=== PATIENT | female | born 1950 | race Two or more races ===

== ENCOUNTER 2017-09-08 14:00 | Outpatient (AMBR) | payer MEDICARE, SELFPAY ==
--- NOTE | 2017-08-23 12:05 | PT.OIERPT ---
PT OP Initial Eval Patient Information Visit Reasons: left hand Medical Diagnosis: S52.592D Treatment Dx #1: Left Wrist Mobility Deficits Treatment Dx #2: Left Hand Weakness Start of Care: 08/23/17 Date of Onset: Apr 2017 Initial Assessment Subjective Pt is a 67 y/o female c/o left hand pain (12/22) started after she broke her distal radius from a fall. Pt was in a cast for several weeks and made her hand and fingers really stiff. Pt came late into therapy due to recently receiving medicare. Pt currently has difficulty with lifting, self care, chores, cooking, cleaning, and gripping activities. Pt also notice that her shoulder is hurting as well since the fall. Objective Right Shoulder AROM Flexion: 130 deg Abduction: 90 deg External Rotation: 45 deg Internal Rotation: 50 deg Right Shoulder MMTs: grossly 3-/5 Right Elbow AROM: all motions are WNL Right Elbow MMTs: grossly 4-/5 Right Wrist AROM Flexion: 10 deg Extension: neutral Supination: 90 deg Pronation: 60 deg Radial Deviation: neutral Ulnar Deviation: 10 deg Academic Assistant Strength- L: 10 lbs R: 65 lbs DASH score: 83% Assessment Pt demonstrate left UE mobility and strength deficits s/p distal radius fracture leading to decline function and difficulty with ADLs. Pt will benefit from physical therapy to increase strength, mobility, and work on functional tasks. Short Term and Hydrologist Goals 1) Decrease DASH score to 20 % and increase left wrist AROM WFL in 12 wks to be able to perform chores around the house 2) Increase left shoulder AROM WFL in 12 wks to be able to perform overhead motions 3) Increase left farmworkers strength to 50 lbs in 12 wks to be able to perform gripping activities 4) Increase left shoulder MMTs to 4-/5 in 12 wks to be able to perform self care activities 5) Indep with HEP Treatment Plan 1) Manual Therapy 2) Therapeutic Activities 3) Therapeutic Exercises 4) Modalities (ice, heat, e-stim) Frequency and Duration 2 x wk for 12 wks Certification Dates: 08/23/17 to 11/23/17 Office Procedures PT Outpatient G-Codes Date of Service PT Date of Service: 08/23/17 G-Codes Carry/Moving/Handling Objects Carry Current Status G-Code: G8984: CM 80-100% Carry Goal Status G-Code:G8985: CI 1-20% PT Procedures PT Date of Service: 08/23/17 OP PT Eval Mod Complex 30 minutes: Yes
--- NOTE | 2017-08-23 12:17 | PTNOTE_ITS ---
PT OP Initial Eval Patient Information Visit Reasons: left hand Medical Diagnosis: S52.592D Treatment Dx #1: Left Wrist Mobility Deficits Treatment Dx #2: Left Hand Weakness Start of Care: 08/23/17 Date of Onset: Apr 2017 Initial Assessment Subjective Pt is a 67 y/o female c/o left hand pain (12/22) started after she broke her distal radius from a fall. Pt was in a cast for several weeks and made her hand and fingers really stiff. Pt came late into therapy due to recently receiving medicare. Pt currently has difficulty with lifting, self care, chores, cooking, cleaning, and gripping activities. Pt also notice that her shoulder is hurting as well since the fall. Objective Right Shoulder AROM Flexion: 130 deg Abduction: 90 deg External Rotation: 45 deg Internal Rotation: 50 deg Right Shoulder MMTs: grossly 3-/5 Right Elbow AROM: all motions are WNL Right Elbow MMTs: grossly 4-/5 Right Wrist AROM Flexion: 10 deg Extension: neutral Supination: 90 deg Pronation: 60 deg Radial Deviation: neutral Ulnar Deviation: 10 deg Web Communications Specialist Strength- L: 10 lbs R: 65 lbs DASH score: 83% Assessment Pt demonstrate left UE mobility and strength deficits s/p distal radius fracture leading to decline function and difficulty with ADLs. Pt will benefit from physical therapy to increase strength, mobility, and work on functional tasks. Short Term and Business Area Manager Goals 1) Decrease DASH score to 20 % and increase left wrist AROM WFL in 12 wks to be able to perform chores around the house 2) Increase left shoulder AROM WFL in 12 wks to be able to perform overhead motions 3) Increase left earring maker strength to 50 lbs in 12 wks to be able to perform gripping activities 4) Increase left shoulder MMTs to 4-/5 in 12 wks to be able to perform self care activities 5) Indep with HEP Treatment Plan 1) Manual Therapy 2) Therapeutic Activities 3) Therapeutic Exercises 4) Modalities (ice, heat, e-stim) Frequency and Duration 2 x wk for 12 wks Certification Dates: 08/23/17 to 11/23/17 Office Procedures PT Outpatient G-Codes Date of Service PT Date of Service: 08/23/17 G-Codes Carry/Moving/Handling Objects Carry Current Status G-Code: G8984: CM 80-100% Carry Goal Status G-Code:G8985: CI 1-20% PT Procedures PT Date of Service: 08/23/17 OP PT Eval Mod Complex 30 minutes: Yes
--- NOTE | 2017-08-26 17:01 | PT.ODAYNRPT ---
PT Outpatient Daily Note Date of Service: August 26, 2017 OP Daily Note Visit Reasons: left hand Outpatient Physical Therapy Treatment Date: 08/26/17 Subjective: Pt's hand is doing much better. Pt still has pain at the broken site. Objective: Please see flow chart for list of ther ex performed Assessment: tolerate exercises performed; pain with supination and pronation exercise, however, tolerable Plan: Continue with PT Length of Time (minutes) of Treatment: 30 Minutes Office Procedures PT Outpatient G-Codes Date of Service PT Date of Service: 08/23/17 G-Codes Carry/Moving/Handling Objects Carry Current Status G-Code: G8984: CM 80-100% Carry Goal Status G-Code:G8985: CI 1-20% PT Procedures PT Date of Service: 08/23/17 OP PT Eval Mod Complex 30 minutes: Yes PT Procedures PT Date of Service: 08/26/17 Therapeutic Exercise 30 minutes: Yes
--- NOTE | 2017-08-30 14:54 | PT.ODAYNRPT ---
PT Outpatient Daily Note Date of Service: August 30, 2017 OP Daily Note Visit Reasons: left hand Outpatient Physical Therapy Treatment Date: 08/30/17 Subjective: pt had some pain of the L hand upon visit but tolerable. Objective: see flow sheet. Assessment: changed the position of the sci-fit from 5 mins to 4 mins forward/4 backwards and pt had no c/o pain or discomfort. attempted to try the Green resistance but was too difficult for went back to using red resistance. good mobility during pulleys for BUE. slow steady during reps which indicates slight weakness. Plan: continue POC per PT. Length of Time (minutes) of Treatment: 30 Minutes Office Procedures PT Outpatient G-Codes Date of Service PT Date of Service: 08/23/17 G-Codes Carry/Moving/Handling Objects Carry Current Status G-Code: G8984: CM 80-100% Carry Goal Status G-Code:G8985: CI 1-20% PT Procedures PT Date of Service: 08/23/17 OP PT Eval Mod Complex 30 minutes: Yes PT Procedures PT Date of Service: 08/30/17 Therapeutic Exercise 30 minutes: Yes PT Procedures PT Date of Service: 08/26/17 Therapeutic Exercise 30 minutes: Yes
--- NOTE | 2017-09-02 14:08 | PT.ODAYNRPT ---
PT Outpatient Daily Note Date of Service: September 02, 2017 OP Daily Note Visit Reasons: left hand Outpatient Physical Therapy Treatment Date: 09/02/17 Subjective: pt c/o weakness of the first three digits on the L hand. Objective: see flow sheet. Assessment: noted hand weakness with gripping exercises but pt attempts to complete all reps. pt can complete an exercise better if she uses both hands due to strength of the opposite hand but when L hand isolated she has more difficulty. pt takes some rest breks in between reps/exercises but tries to complete all at once. Plan: continue POC per PT. Length of Time (minutes) of Treatment: 30 Minutes Office Procedures PT Outpatient G-Codes Date of Service PT Date of Service: 08/23/17 G-Codes Carry/Moving/Handling Objects Carry Current Status G-Code: G8984: CM 80-100% Carry Goal Status G-Code:G8985: CI 1-20% PT Procedures PT Date of Service: 08/23/17 OP PT Eval Mod Complex 30 minutes: Yes PT Procedures PT Date of Service: 08/30/17 Therapeutic Exercise 30 minutes: Yes PT Procedures PT Date of Service: 08/26/17 Therapeutic Exercise 30 minutes: Yes PT Procedures PT Date of Service: 09/02/17 Therapeutic Exercise 30 minutes: Yes
--- NOTE | 2017-09-06 10:36 | PTNOTE_ITS ---
PT Outpatient Daily Note Date of Service: September 06, 2017 OP Daily Note Visit Reasons: left hand Outpatient Physical Therapy Treatment Date: 09/06/17 Subjective: Pt's wrist and shoulder feels the same. Pt stated that no change in pain or motions since starting physical therapy. Objective: Please see flow chart for list of ther ex performed Assessment: slight improvement with wrist AROM and finger flexion. Pt advised that if she continues to have shoulder pain she should follow up with PCP Plan: Continue with PT Length of Time (minutes) of Treatment: 30 Minutes Office Procedures PT Outpatient G-Codes Date of Service PT Date of Service: 08/23/17 G-Codes Carry/Moving/Handling Objects Carry Current Status G-Code: G8984: CM 80-100% Carry Goal Status G-Code:G8985: CI 1-20% PT Procedures PT Date of Service: 08/23/17 OP PT Eval Mod Complex 30 minutes: Yes PT Procedures PT Date of Service: 08/30/17 Therapeutic Exercise 30 minutes: Yes PT Procedures PT Date of Service: 09/06/17 Therapeutic Exercise 15 minutes: Yes Manual Certified Medical Transcriptionist 15 minutes: Yes PT Procedures PT Date of Service: 08/26/17 Therapeutic Exercise 30 minutes: Yes PT Procedures PT Date of Service: 09/02/17 Therapeutic Exercise 30 minutes: Yes
--- NOTE | 2017-09-08 14:09 | PT.ODAYNRPT ---
PT Outpatient Daily Note Date of Service: September 08, 2017 OP Daily Note Visit Reasons: left hand Outpatient Physical Therapy Treatment Date: 09/08/17 Subjective: Pt's hand is a little better. Pt's able to make a better first with less stiffness Objective: Please see flow chart for list of ther ex performed Assessment: improved PIP flexion from digits 2-5th. Pt able to perform gripping activities with less limitation Plan: Continue with PT Length of Time (minutes) of Treatment: 30 Minutes Office Procedures PT Outpatient G-Codes Date of Service PT Date of Service: 08/23/17 G-Codes Carry/Moving/Handling Objects Carry Current Status G-Code: G8984: CM 80-100% Carry Goal Status G-Code:G8985: CI 1-20% PT Procedures PT Date of Service: 08/23/17 OP PT Eval Mod Complex 30 minutes: Yes PT Procedures PT Date of Service: 08/30/17 Therapeutic Exercise 30 minutes: Yes PT Procedures PT Date of Service: 09/06/17 Therapeutic Exercise 15 minutes: Yes Manual Store Grocery Merchandiser 15 minutes: Yes PT Procedures PT Date of Service: 09/08/17 Therapeutic Exercise 15 minutes: Yes Manual Store Grocery Merchandiser 15 minutes: Yes PT Procedures PT Date of Service: 08/26/17 Therapeutic Exercise 30 minutes: Yes PT Procedures PT Date of Service: 09/02/17 Therapeutic Exercise 30 minutes: Yes
== END 2017-09-11 23:59 ==
PROVIDERS: PCP Advanced Practice Midwife; Referring Provider Registered Nurse Community Health; Visit Provider Physician Assistant
DX: I10 Essential (primary) hypertension (principal)
CPT/HCPCS: 97110; 97140; 97162; G8984; G8985

== ENCOUNTER 2017-10-04 13:00 | Outpatient (AMBR) | payer MEDICARE, MEDICAID, SELFPAY ==
--- NOTE | 2017-09-13 10:55 | PT.ODAYNRPT ---
PT Outpatient Daily Note Date of Service: September 13, 2017 OP Daily Note Visit Reasons: left hand Outpatient Physical Therapy Treatment Date: 09/13/17 Subjective: Pt's hand is feeling better. Pt has been able to start light knitting. Pt notice swelling and pain within her fingers at the end of the day. Objective: Please see flow chart for list of ther ex performed Assessment: continue to improve with finger flexion. improve PIP mobilitly within 1st to 4th digit. Pt is almost able to make a fist. Plan: Continue with PT Length of Time (minutes) of Treatment: 45 Minutes Office Procedures PT Procedures PT Date of Service: 09/13/17 Therapeutic Exercise 30 minutes: Yes Manual Continuous Pickling Line Pickler Helper 15 minutes: Yes
--- NOTE | 2017-09-20 13:40 | PT.ODAYNRPT ---
PT Outpatient Daily Note Date of Service: September 20, 2017 OP Daily Note Visit Reasons: left hand Outpatient Physical Therapy Treatment Date: 09/20/17 Subjective: pt c/o not being able to bend the first digit as it feels stiff. pt mentioned referral for L shoulder should be coming in. Objective: see flow sheet. Assessment: during PROM noted the first 2 digits were stiff and caused discomfort. the thumbs tends to tense up as I'm stretching the other fingers. pt does have limited ROM which is causing limited mobility for ADLs. pt tolerated PROM and had no c/o increase in pain afterwards. muscle fatigue after the finger ladder but at the shoulder. Plan: continue POC per PT. Length of Time (minutes) of Treatment: 30 Minutes Office Procedures PT Procedures PT Date of Service: 09/13/17 Therapeutic Exercise 30 minutes: Yes Manual Photoengraving Photographer 15 minutes: Yes PT Procedures PT Date of Service: 09/20/17 Therapeutic Exercise 15 minutes: Yes Manual Photoengraving Photographer 15 minutes: Yes
--- NOTE | 2017-09-23 11:04 | PT.ODAYNRPT ---
PT Outpatient Daily Note Date of Service: September 23, 2017 OP Daily Note Visit Reasons: left hand Outpatient Physical Therapy Treatment Date: 09/23/17 Subjective: Pt's hand feels much better. Pt mention that she can start light cooking and lifting now. Objective: Please see flow chart for list of ther ex performed Assessment: able to make a fist; still exhibit hypomobile 1st and 2nd digit MCP joint leading to difficulty with finger flexion. Plan: Continue with PT Length of Time (minutes) of Treatment: 30 Minutes Office Procedures PT Procedures PT Date of Service: 09/23/17 Therapeutic Exercise 15 minutes: Yes Manual Smt Operator 15 minutes: Yes PT Procedures PT Date of Service: 09/13/17 Therapeutic Exercise 30 minutes: Yes Manual Smt Operator 15 minutes: Yes PT Procedures PT Date of Service: 09/20/17 Therapeutic Exercise 15 minutes: Yes Manual Smt Operator 15 minutes: Yes
--- NOTE | 2017-09-27 14:28 | PTNOTE_ITS ---
PT Outpatient Daily Note Date of Service: September 27, 2017 OP Daily Note Visit Reasons: left hand Outpatient Physical Therapy Treatment Date: 09/27/17 Subjective: pt reports she can't get referral for her L shoulder until after an MRI is done. Objective: see flow sheet. Assessment: pt has no complaints during the exercises as she can complete all reps and sets. pt does have difficulty relaxing her fingers during PROM. after cuing for her to relax a few times she was able to relax for a bit. pt tends to tense up with every stretch. some discomfort when stretching joints for all digits. noted stiffness of the DIPs and PIPs with very little swelling not warm to touch. Plan: continue POC per PT. Length of Time (minutes) of Treatment: 30 Minutes Office Procedures PT Procedures PT Date of Service: 09/23/17 Therapeutic Exercise 15 minutes: Yes Manual Nuclear Plant Construction Worker 15 minutes: Yes PT Procedures PT Date of Service: 09/13/17 Therapeutic Exercise 30 minutes: Yes Manual Nuclear Plant Construction Worker 15 minutes: Yes PT Procedures PT Date of Service: 09/20/17 Therapeutic Exercise 15 minutes: Yes Manual Nuclear Plant Construction Worker 15 minutes: Yes PT Procedures PT Date of Service: 09/27/17 Therapeutic Exercise 30 minutes: Yes
--- NOTE | 2017-10-04 13:35 | PT.ODS1RPT ---
PT OP Progress/Discharge Note Date of Service: October 04, 2017 Progress Note/DC Note Progress Note/Discharge Note: DC Note Patient Information Visit Reasons: left hand Medical Diagnosis: S52.592D Treatment Dx #1: Left Wrist Mobility Deficits Treatment Dx #2: Left Hand Weakness Service Continue Service or Discharge: Discharge Discharge Date: 10/04/17 Status Subjective: Pt mention that her hand is a little better but still feels almost the same since she started physical therapy. Pt still has difficulty making a fist, lifting, chores, and performing overhead motions. Pt mention that currently her biggest limitation is the shoulder. Pt notice more pain there leading to difficulty with her left arm use with functional tasks. Pt feels comfortable being release from physical therapy with exercises to continue at home. Objective: Left Wrist AROM: Flexion: 30 deg Extension: 15 deg Pronation and Supination: WNL Radial Deviation: 10 deg Ulnar Deviation: 15 deg Landfill Gas Collection System Operator Strength- L: 25 lbs R: 65 lbs DASH score: 67% Assessment: Pt's left wrist and strength has improved mildly since starting physical therapy, however, continues to have pain within the wrist and shoulder. Due to Pt's limited wrist and finger mobility; she has difficulty making a fist to perform lifting and gripping activities. At this time Pt will no longer benefit from physical therapy due to minimal progression towards goals. Pt did not meet set goals in therapy and will be d/c from therapy per Pt's request. Pt will like to be seen for the shoulder. Pt was instructed on HEP last session and educated to continue exercises to maintain overall mobility and strength. Pt performed all exercises safely, thank you for your referrals. Plan: D/C home with HEP and follow up with PCP Office Procedures PT Outpatient G-Codes Date of Service PT Date of Service: 10/04/17 G-Codes Carry/Moving/Handling Objects Carry Goal Status G-Code:G8985: CM 80-100% Carry Discharge Status G-Code: G8986: CK 40-60% PT Procedures PT Date of Service: 09/23/17 Therapeutic Exercise 15 minutes: Yes Manual Sexual Assault Response Coordinator 15 minutes: Yes PT Procedures PT Date of Service: 10/04/17 Therapeutic Exercise 15 minutes: Yes Self Care/Home Mgmt 15 minutes: Yes PT Procedures PT Date of Service: 09/13/17 Therapeutic Exercise 30 minutes: Yes Manual Sexual Assault Response Coordinator 15 minutes: Yes PT Procedures PT Date of Service: 09/20/17 Therapeutic Exercise 15 minutes: Yes Manual Sexual Assault Response Coordinator 15 minutes: Yes PT Procedures PT Date of Service: 09/27/17 Therapeutic Exercise 30 minutes: Yes
== END 2017-10-04 13:39 | disposition home or self-care (01) ==
PROVIDERS: PCP Advanced Practice Midwife; Referring Provider Advanced Practice Midwife; Visit Provider Physician Assistant
DX: I10 Essential (primary) hypertension (principal)
CPT/HCPCS: 97110; 97140; 97535; G8985; G8986

== ENCOUNTER 2024-05-10 13:01 | Outpatient (RCR) | payer MEDICARE, MEDICAID, SELFPAY ==
--- NOTE | 2024-05-10 14:27 | CTCCONSULT_ITS ---
[facility] [address], [place] [address] Consultation Note Date: 05/10/2024 MR#: [id number] Name: AYDEE SAUCEDO : 1950 Dx: C50.412 Malignant neoplasm of upper-outer quadrant of left female breast Attending physician. Litzy Silver NP living water Reason for consultation. Patient with left breast cancer recently getting treatment in [place] History of Present Illness: Patient is a 73-year-old lady who had an abnormal appearing mammogram on September 27 revealing a 14 mm BI-RADS 4 upper outer quadrant left breast.. Patient underwent stereotactic core biopsy on 12/23/2023 revealing invasive ductal carcinoma largest focus 0.8 cm 95% ER +5% ER positive and HER2/burke negative Ki67 5 to 10%. Patient elects to get cancer treatment in [place] reportedly had interferon treatments for 2 months duration 30 IV treatments between late January and March. States that she does not want to go back there and would like to conventional treatments here in [place]. Has never seen any other doctor in [place] for this problem since the biopsy performed 12/23/2023. States that she has never felt a lump in her breast or axilla. Past Medical History: High blood pressure diabetes history of CVA chickenpox Meds. Atorvastatin Linzess losartan 81 mg aspirin clopidogrel Allergies none to meds Family history. Colon cancer and testicular cancer in family Social History: Retired [place]-speaking from [facility] in [place] where she was getting IV interferons Review of Systems: Has not felt any breast lump then or now denies pain shortness of breath. Physical Exam: Adequate nourished appearing lady no acute distress General: HEENT: Atraumatic normocephalic extraocular is intact no oral lesion no cervical or supraclavicular adenopathy CV: No discrete mass felt in either breast or axillary area chest clear to auscultation heart regular rate and rhythm ABD: Soft no organomegaly or tenderness EXT: No signs of clubbing or edema Assessment:1. Patient with seemingly early stage left breast CA clinical stage I 14 mm upper outer quadrant left breast CA biopsy + 12/23/2023 95% ER +5% TN positive HER2/burke 1+ negative. Ki-67 5 to 10%. 2. Elected to delay conventional care by at least 2 months receiving interferon in [place]. 3. Agrees to have conventional recommendation for breast cancer now. 4. Would like to have patient see general surgeon regarding breast surgery and patient also has appointment with medical oncologist Dr. Ramsey lozano. 5. I will schedule her for follow-up in 2 months to see me as well. Thank you very much allowing me to evaluate this patient. Carlos Snow/Litzy Silver NP Electronically signed by: Solomon Ramon MD, DABR 05/10/2024 2:24 PM
== END 2024-05-12 23:59 | disposition home or self-care (01) ==
LOC: SCTC 13:01
PROVIDERS: PCP Nurse Practitioner Family; Referring Provider Nurse Practitioner Family; Visit Provider Radiology Therapeutic Radiology
DX: C50.412 Malignant neoplasm of upper-outer quadrant of left female breast (principal); Z17.0 Estrogen receptor positive status [ER+]; Z17.21 Progesterone receptor positive status; Z17.32 Human epidermal growth factor receptor 2 negative status
CPT/HCPCS: 99213; G0463

== ENCOUNTER → 2024-05-23 | Outpatient (CLI) | payer MEDICARE, MEDICAID, SELFPAY ==
--- NOTE | 2024-05-23 12:00 | XR_ITS ---
Examination: Breast ultrasound, unilateral, left complete Date and time of exam: May 2024 1112 hrs. Indications: Diagnosis malignant neoplasm left breast positive biopsy December 23, 2023 Technique: Real-time rivera scale ultrasonographic imaging performed left breast including all 4 quadrants as well as nipple retroareolar and axillary region. Findings: Multiple benign cysts 2:00 oval mass indistinct margins 15 x 11 x 18 mm, compared to 11 x 6 x 12 mm on ultrasound August 16, 2023 Impression: BI-RADS Category 5: Enlarging nodule 2:00 position left breast indistinct margins compared to the August 16, 2023 exam
== END | disposition home or self-care (01) ==
PROVIDERS: PCP Surgery; Referring Provider Surgery; Visit Provider Surgery
DX: N63.21 Unspecified lump in the left breast, upper outer quadrant (principal); C50.412 Malignant neoplasm of upper-outer quadrant of left female breast
CPT/HCPCS: 76641

== ENCOUNTER 2024-05-25 08:28 | Outpatient (RCR) | payer MEDICARE, MEDICAID, SELFPAY ==
--- NOTE | 2024-06-11 23:21 | CTCCONSULT_ITS ---
Patient: AYDEE SAUCEDO : 1950 MR#: [id number] Page 3 of 4 CONSULTATION NOTE DATE OF CONSULTATION: 05/25/2024 NAME: AYDEE SAUCEDO ACCOUNT: [id number] : 1950 AGE: 74 REFERRING PHYSICIAN: Litzy Silver MD PRIMARY PHYSICIAN: Litzy Silver MD REASON FOR VISIT: Follow-up on breast cancer ONCOLOGY HISTORY: DIAGNOSIS: Malignant neoplasm of upper-outer quadrant of left female breast [ICD10] C50.412 DATE OF DIAGNOSIS: 12/23/2023 STAGE/TNM: Likely stage I ER/UT positive HER2 negative TREATMENT HISTORY: Care?Plan Start?Date Cycle Day Intent HISTORY OF PRESENT ILLNESS: 74-year-old female who had an abnormal appearing mammogram on September 27 revealing a 14 mm BI-RADS 4 upper outer quadrant left breast.. Patient underwent stereotactic core biopsy on 12/23/2023 revealing invasive ductal carcinoma largest focus 0.8 cm 95% ER +5% ER positive and HER2/burke negative Ki67 5 to 10%. Patient elects to get cancer treatment in [place] reportedly had interferon treatments for 2 months duration 30 IV treatments between late January and March. States that she does not want to go back there and would like to conventional treatments here in [place]. Has never seen any other doctor in [place] for this problem since the biopsy performed 12/23/2023. States that she has never felt a lump in her breast or axilla. Age 892[birth year]23[birth year]23 OTHER MEDICAL HISTORY/CONDITIONS: HYPERTENSION DIABETES TYPE 2 STROKE SEPTEMBER 2023 RECTAL PROLASPSE SURGERY LEFT SHOULDER ROTATOR CUFF SX FAMILY HISTORY: Father:?DENIES Mother:?DENIES Siblin BROTHER TESTICULAR CANCER, SISTER COLON CANCER Children:?DENIES SOCIAL HISTORY: Occupational?History:?RETIRED [employer] Education?Level:?Completed something less than 8th grade Marital?Status:? 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 anastrozole - 1 mg 1 tab Daily 2. atorvastatin - As directed 3. Linzess - As directed 4. losartan - As directed Medications Last Reconciled by Zoe Boyce RN on 05/25/2024 ALLERGIES: No Known Allergies; No Known Drug Allergies REVIEW OF SYSTEMS: A complete 14-point review of systems was performed and is negative except as noted in interval history. PHYSICAL EXAMINATION: VITAL SIGNS: Temperature?98.6, B/P?143/81, Height?64?inches Weight?151?lbs (Change?since?05/10/24:?-1?lbs) PAIN: 3 - Between mild and moderate pain ECOG Performance Status: 0 - Asymptomatic and fully active GENERAL APPEARANCE: Appears well, in no apparent distress, appropriately interactive. HEENT: Normocephalic, no temporal wasting, normal conjunctiva, no scleral icterus, normal hearing, lips without lesions, neck normal range of motion. CARDIOVASCULAR: Not assessed. PULMONARY: Normal respiratory effort, no respiratory distress or use of accessory muscles, speaking in full sentences, no tachypnea. EXTREMITIES: No pedal edema or cyanosis. SKIN: Normal skin appearance. NEUROLOGIC: Alert and oriented x4. PSHYCHIATRIC: Appropriate affect, mood normal, behavior normal, intact thought and speech. LABORATORY DATA: I have personally reviewed and interpreted each of the patient?s relevant lab tests, abnormal findings are below: Date ASSESSMENT/PLAN: Early stage breast cancer Estrogen positive Will start on anastrozole 1 mg daily Referral placed to general surgery start Will follow-up after the results of surgery are back Patient advised to stop anastrozole during the surgery days and once recovered will start the medicine also advised to take calcium and vitamin D Final pathology report will guide if patient will need chemotherapy RETURN TO CLINIC: 4 weeks BILLING AND COMPLIANCE: I reviewed external records from providers outside my specialty as summarized above. I spent a total of 50 minutes on this patient?s care on the day of their visit excluding time spent related to any billed procedures. This time includes time spent with the patient as well as time spent documenting in the medical record, reviewing patients records and tests, obtaining history, placing orders, communicating with other healthcare professionals, counseling the patient, family or caregiver, and/or care coordination for the diagnoses above. Electronically Signed by: Yoel Bonner MD T: 11:18 PM CC: PCP: Litzy Silver Referring: Litzy Silver This document was completed utilizing speech recognition software. Grammatical errors, random word insertions, pronoun errors, and incomplete sentences are an occasional consequence of this system due to software limitations, ambient noise, and hardware issues. Any formal questions or concerns about the content, text or information contained within the body of this dictation should be directly addressed to the provider for clarification.
== END 2024-06-12 23:59 | disposition home or self-care (01) ==
LOC: SCTC 08:28
PROVIDERS: PCP Nurse Practitioner Family; Referring Provider Nurse Practitioner Family; Visit Provider Internal Medicine Hematology & Oncology
DX: C50.412 Malignant neoplasm of upper-outer quadrant of left female breast (principal); Z17.0 Estrogen receptor positive status [ER+]; Z17.21 Progesterone receptor positive status; Z17.32 Human epidermal growth factor receptor 2 negative status
CPT/HCPCS: 99213; G0463

== ENCOUNTER → 2024-06-14 | Outpatient (CLI) | payer MEDICARE, MEDICAID, SELFPAY ==
--- NOTE | 2024-06-14 13:37 | XR_ITS ---
Examination: Diagnostic digital mammography, unilateral, right Computer aided detection 3-D breast Tomosynthesis, unilateral Date and time of exam: June 14, 2024 1347 hours INDICATIONS: Palpable lump right breast noted on clinical breast examination by physician 3 weeks ago, personal history left breast cancer Technique: Nonmagnified MLO, CC views of the right breast have been obtained, reconstructed from 3-D Tomosynthesis images. R2 computer aided detection program utilized for evaluation of suspicious masses and/or abnormal calcifications. 3-D Tomosynthesis images obtained. Findings: The breast is heterogeneously dense, which may obscure small masses 12 mm nodule upper outer right breast partially indistinct margins Impression: BI-RADS category 0: Incomplete: Need additional imaging evaluation Recommend spot tomographic views upper outer quadrant right breast, right breast sonography to complete the workup
== END | disposition home or self-care (01) ==
PROVIDERS: PCP Nurse Practitioner Family; Referring Provider Nurse Practitioner Family; Visit Provider Surgery
DX: R92.8 Other abnormal and inconclusive findings on diagnostic imaging of breast (principal)
CPT/HCPCS: 77061; 77065; G0279

== ENCOUNTER → 2024-06-15 | Outpatient (CLI) | payer MEDICARE, MEDICAID, SELFPAY ==
[2024-06-15 14:30] LABS: Basophils # (Auto) 0.1 Thou/mm3 (0.0-0.2); Basophils % (Auto) 1 % (0-2.5); Eosinophils # (Auto) 0.2 Thou/mm3 (0.0-0.5); Eosinophils % (Auto) 2 % (0-10); Hematocrit 37.3 % (36.0-46.0); Hemoglobin 12.3 g/dL (12.0-16.0); Immature Granulocytes % (Auto) 1 % (0-0); Immature Granulocytes Auto 0.09 Thou/mm3 (0.00-0.00); Lymphocytes # (Auto) 2.5 Thou/mm3 (1.0-4.8); Lymphocytes % (Auto) 28 % (10-50); Mean Corpuscular Hemoglobin 31.3 pg (25.0-35.0); Mean Corpuscular Volume 95 fL (80-100); Monocytes # (Auto) 0.6 Thou/mm3 (0.0-0.8); Monocytes % (Auto) 7 % (0-12); Neutrophils # (Auto) 5.6 Thou/mm3 (1.8-7.7); Neutrophils % (Auto) 62 % (37-80); Nucleated Red Blood Cell % 0 /100 WBC (0); Platelet Count 404 Thou/mm3 (140-440); RDW Standard Deviation 43.8 fL (36.4-46.3); Red Blood Count 3.93 Miln/mm3 (4.00-5.20); White Blood Count 9.1 Thou/mm3 (3.6-11.0)
[2024-06-15 14:37] LABS: Alanine Aminotransferase 18 U/L (10-49); Albumin, Serum 4.7 gm/dL (3.4-4.8); Alkaline Phosphatase 75 U/L (46-116); Anion Gap 9 (7-16); Aspartate Amino Transferase 20 U/L (0-34); BUN/Creatinine Ratio 14 Ratio (12-20); Bilirubin,Total 0.6 mg/dL (0.3-1.2); Blood Urea Nitrogen 13 mg/dL (9-23); Carbon Dioxide 32.7 mMol/L (20.0-31.0); Chloride 101 mMol/L (98-107); Creatinine (Component) 0.9 mg/dL (0.6-1.3); Globulin 2.3 gm/dL (2.3-3.5); Glucose 185 mg/dL (74-106); Osmolality,Calculated 290 (275-295); Potassium 4.5 mMol/L (3.4-5.1); Sodium 143 mMol/L (136-145); eGFR > 60 See Note
== END | disposition home or self-care (01) ==
LOC: SCTO 12:55
PROVIDERS: PCP Nurse Practitioner Family; Referring Provider Internal Medicine Hematology & Oncology; Visit Provider Internal Medicine Hematology & Oncology
DX: C50.412 Malignant neoplasm of upper-outer quadrant of left female breast (principal)
CPT/HCPCS: 36415; 80053; 85025

== ENCOUNTER → 2024-06-29 | Outpatient (BNVA) | payer MEDICARE, MEDICAID, SELFPAY | END | disposition home or self-care (01) | PROVIDERS: PCP Nurse Practitioner Family; Referring Provider Nurse Practitioner Family; Visit Provider Urology | DX: N39.46 Mixed incontinence (principal); C50.912 Malignant neoplasm of unspecified site of left female breast; E11.9 Type 2 diabetes mellitus without complications; F33.9 Major depressive disorder, recurrent, unspecified; I10 Essential (primary) hypertension; I83.93 Asymptomatic varicose veins of bilateral lower extremities; K57.32 Diverticulitis of large intestine without perforation or abscess without bleeding; Z86.73 Personal history of transient ischemic attack (TIA), and cerebral infarction without residual deficits | CPT/HCPCS: 81003; 99203; G0463 ==

== ENCOUNTER 2024-07-06 09:13 | Outpatient (RCR) | payer MEDICARE, MEDICAID, SELFPAY ==
--- NOTE | 2024-06-21 00:55 | CTCFLWUP_ITS ---
Patient: AYDEE SAUCEDO : 1950 Page 4 of 6 FOLLOW UP NOTE DATE OF SERVICE: 06/15/2024 NAME: AYDEE SAUCEDO ACCOUNT: [id number] : 1950 AGE: 74 INTERVAL HISTORY: Patient complaing of mass in right breast . ONCOLOGY HISTORY: DIAGNOSIS: Malignant neoplasm of upper-outer quadrant of left female breast [ICD10] C50.412 DATE OF DIAGNOSIS: 12/23/2023 STAGE/TNM: Likely stage I ER/SC positive HER2 negative TREATMENT HISTORY: Care?Plan Start?Date Cycle Day Intent HISTORY OF PRESENT ILLNESS: 74-year-old female who had an abnormal appearing mammogram on September 27 revealing a 14 mm BI-RADS 4 upper outer quadrant left breast.. Patient underwent stereotactic core biopsy on 12/23/2023 revealing invasive ductal carcinoma largest focus 0.8 cm 95% ER +5% ER positive and HER2/burke negative Ki67 5 to 10%. Patient elects to get cancer treatment in [place] reportedly had interferon treatments for 2 months duration 30 IV treatments between late January and March. States that she does not want to go back there and would like to conventional treatments here in [place]. Has never seen any other doctor in [place] for this problem since the biopsy performed 12/23/2023. States that she has never felt a lump in her breast or axilla. Age OTHER MEDICAL HISTORY/CONDITIONS: HYPERTENSION DIABETES TYPE 2 STROKE SEPTEMBER 2023 RECTAL PROLASPSE SURGERY LEFT SHOULDER ROTATOR CUFF SX FAMILY HISTORY: Father:?DENIES Mother:?DENIES Siblin BROTHER TESTICULAR CANCER, SISTER COLON CANCER Children:?DENIES SOCIAL HISTORY: Occupational?History:?RETIRED [employer] Education?Level:?Completed something less than 8th grade Marital?Status:? 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 anastrozole - 1 mg 1 tab Daily 2. atorvastatin - As directed 3. Linzess - As directed 4. losartan - As directed Medications Last Reconciled by Zoe Boyce RN on 05/25/2024 ALLERGIES: No Known Allergies; No Known Drug Allergies REVIEW OF SYSTEMS: A complete 14-point review of systems was performed and is negative except as noted in interval history. PHYSICAL EXAMINATION: VITAL SIGNS: Temperature?97, B/P?156/70, Oxygen?Saturation?96% Weight?155?lbs (Change?since?05/25/24:?4?lbs) PAIN: 5 - Between moderate and severe pain ECOG Performance Status: 1 - Symptomatic; ambulatory; restricted in strenuous activity GENERAL APPEARANCE: Appears well, in no apparent distress, appropriately interactive. HEENT: Normocephalic, no temporal wasting, normal conjunctiva, no scleral icterus, normal hearing, lips without lesions, neck normal range of motion. CARDIOVASCULAR: Not assessed. PULMONARY: Normal respiratory effort, no respiratory distress or use of accessory muscles, speaking in full sentences, no tachypnea. EXTREMITIES: No pedal edema or cyanosis. SKIN: Normal skin appearance. NEUROLOGIC: Alert and oriented x4. PSHYCHIATRIC: Appropriate affect, mood normal, behavior normal, intact thought and speech. Left breast surgical site healing. Right breast have palpable mass. LABORATORY DATA: I have personally reviewed and interpreted each of the patient?s relevant lab tests, abnormal findings are below: Date 06/15/24 ??WHITE?BLOOD?COUNT?(Thou/mm3) 9.1 ??RED?BLOOD?COUNT?(Miln/mm3) 3.93?L ??HEMOGLOBIN?(gm/dl) 12.3 ??HEMATOCRIT?(%) 37.3 ??PLATELET?COUNT?(Thou/mm3) 404 ??NEUTROPHILS?%,?AUTO?(%) 62 ??LYMPH?%,?AUTO?(%) 28 ??NEUTROPHILS,?AUTO?(Thou/mm3) 5.6 ??GLUCOSE,RANDOM?(mg/dL) 185?H ??BLOOD?UREA?NITROGEN?(mg/dL) 13 ??CREATININE?(mg/dL) 0.90 ??SODIUM?(mmol/L) 143 ??POTASSIUM?(mmol/L) 4.5 ??CHLORIDE?(mmol/L) 101 ??CrCl?(CandG)?(ml/min) 62.71 ??AST/SGOT?(Unit/L) 20 ??ALT/SGPT?(Unit/L) 18 ??ALKALINE?PHOSPHATASE?(Unit/L) 75 ??BILIRUBIN,?TOTAL?(mg/dL) 0.6 ??PROTEIN?TOTAL?(gm/dl) 7.0 ??ALBUMIN,?SERUM?(gm/dl) 4.7 ??GLOBULIN?(gm/dl) 2.3 ??ALBUMIN/GLOBULIN?RATIO 2.0 ??CALCIUM,?SERUM?(mg/dL) 10.0 ??CALCIUM?SERUM?(CORRECTED)?(mg/dL) 10.0 ASSESSMENT/PLAN: Early stage breast cancer Estrogen positive on anastrozole 1 mg daily Oncotype on lumpectomy specimen ordered Radiation Mammogram of right breast Follow oncotype for need of chemotherapy in 2 weeks ORDERS: Order # Description [id number] Comprehensive Metabolic Panel - 12 + CBC with Auto Diff [id number] Unilateral + Right + Breast Ultrasound [id number] MD Follow Up 4 Week RETURN TO CLINIC: 2-3 weeks BILLING AND COMPLIANCE: I reviewed external records from providers outside my specialty as summarized above. I spent a total of 50 minutes on this patient?s care on the day of their visit excluding time spent related to any billed procedures. This time includes time spent with the patient as well as time spent documenting in the medical record, reviewing patients records and tests, obtaining history, placing orders, communicating with other healthcare professionals, counseling the patient, family or caregiver, and/or care coordination for the diagnoses above. Electronically Signed by: Yoel Bonner MD T: 12:52 AM CC: PCP: Litzy Silver Referring: Yoel Bonner This document was completed utilizing speech recognition software. Grammatical errors, random word insertions, pronoun errors, and incomplete sentences are an occasional consequence of this system due to software limitations, ambient noise, and hardware issues. Any formal questions or concerns about the content, text or information contained within the body of this dictation should be directly addressed to the provider for clarification.
== END 2024-07-12 23:59 | disposition home or self-care (01) ==
LOC: SCTC 09:13
PROVIDERS: PCP Nurse Practitioner Family; Referring Provider Internal Medicine Hematology & Oncology; Visit Provider Radiology Therapeutic Radiology
DX: C50.412 Malignant neoplasm of upper-outer quadrant of left female breast (principal); Z17.0 Estrogen receptor positive status [ER+]; Z17.21 Progesterone receptor positive status; Z17.32 Human epidermal growth factor receptor 2 negative status; Z90.12 Acquired absence of left breast and nipple; Z79.811 Long term (current) use of aromatase inhibitors
CPT/HCPCS: 36415; 80053; 85025; 99213; G0463

== ENCOUNTER → 2024-07-07 | Outpatient (CLI) | payer MEDICARE, MEDICAID, SELFPAY ==
[2024-07-07 09:40] LABS: Basophils # (Auto) 0.1 Thou/mm3 (0.0-0.2); Basophils % (Auto) 1 % (0-2.5); Eosinophils # (Auto) 0.2 Thou/mm3 (0.0-0.5); Eosinophils % (Auto) 3 % (0-10); Hematocrit 36.5 % (36.0-46.0); Immature Granulocytes % (Auto) 1 % (0-0); Immature Granulocytes Auto 0.03 Thou/mm3 (0.00-0.00); Lymphocytes # (Auto) 2.3 Thou/mm3 (1.0-4.8); Lymphocytes % (Auto) 37 % (10-50); Mean Corpuscular HGB Conc 32.9 g/dl (31.0-37.0); Mean Corpuscular Hemoglobin 31.3 pg (25.0-35.0); Mean Corpuscular Volume 95 fL (80-100); Monocytes # (Auto) 0.4 Thou/mm3 (0.0-0.8); Monocytes % (Auto) 7 % (0-12); Neutrophils # (Auto) 3.1 Thou/mm3 (1.8-7.7); Neutrophils % (Auto) 51 % (37-80); Nucleated Red Blood Cell % 0 /100 WBC (0); Platelet Count 404 Thou/mm3 (140-440); RDW Standard Deviation 43.4 fL (36.4-46.3); Red Blood Count 3.84 Miln/mm3 (4.00-5.20); White Blood Count 6.1 Thou/mm3 (3.6-11.0)
[2024-07-07 10:02] LABS: Glucose Estimated Average 154 mg/dL (80-131)
[2024-07-07 10:08] LABS: Folate 20.12 ng/mL (>5.38); Vitamin B12 648 pg/mL (211-911); Vitamin D 25 Hydroxy Total 54.6 ng/mL (7.3-40.2)
[2024-07-07 10:13] LABS: Alanine Aminotransferase 12 U/L (10-49); Albumin, Serum 5.1 gm/dL (3.4-4.8); Albumin/Globulin Ratio 2.4 (1.2-2.2); Alkaline Phosphatase 74 U/L (46-116); Anion Gap 8 (7-16); Aspartate Amino Transferase 15 U/L (0-34); BUN/Creatinine Ratio 19 Ratio (12-20); Bilirubin,Total 0.4 mg/dL (0.3-1.2); Blood Urea Nitrogen 15 mg/dL (9-23); Calcium 10.2 mg/dL (8.3-10.6); Calcium (Corrected) 10.2 mg/dL (8.5-10.1); Carbon Dioxide 28.1 mMol/L (20.0-31.0); Chloride 108 mMol/L (98-107); Cholesterol 142 mg/dL (132-200); Creatinine (Component) 0.8 mg/dL (0.6-1.3); Free T4 (Free Thyroxine) 1.07 ng/dL (0.89-1.76); Globulin 2.1 gm/dL (2.3-3.5); Glucose 144 mg/dL (74-106); HDL Cholesterol 48 mg/dL (40-60); LDL Cholesterol,Calculated 59 mg/dL (0-130); Osmolality,Calculated 290 (275-295); Potassium 4.1 mMol/L (3.4-5.1); Sodium 144 mMol/L (136-145); Thyroid Stimulating Hormone 1.92 uIU/mL (0.55-4.78); Total Protein 7.2 gm/dL (5.7-8.2); Triglycerides 173 mg/dL (30-150); eGFR > 60 See Note
== END | disposition home or self-care (01) ==
PROVIDERS: PCP Nurse Practitioner Family; Referring Provider Nurse Practitioner Family; Visit Provider Nurse Practitioner Family
DX: E11.21 Type 2 diabetes mellitus with diabetic nephropathy (principal); E55.9 Vitamin D deficiency, unspecified; E78.5 Hyperlipidemia, unspecified; R89.8 Other abnormal findings in specimens from other organs, systems and tissues
CPT/HCPCS: 36415; 80053; 80061; 82306; 82607; 82746; 83036; 83721; 84439; 84443; 85025

== ENCOUNTER → 2024-07-10 | Outpatient (CLI) | payer MEDICARE, MEDICAID, SELFPAY ==
--- NOTE | 2024-07-10 14:30 | XR_ITS ---
Examination: Breast ultrasound, unilateral, right complete Date and time of exam: July 10, 2024 1534 hours INDICATIONS: Palpable lump in the upper right breast beginning several weeks ago, left breast cancer history with lumpectomy December 2023 Technique: Real-time rivera scale ultrasonographic imaging performed right breast including all 4 quadrants as well as nipple retroareolar and axillary region. Findings: 3:00 nodule 7 x 7 mm circumscribed IMPRESSION: BI-RADS Category 3: Probably benign findings One additional 6 month right breast sonogram follow-up is needed to document stability of 3:00 nodule described above
== END | disposition home or self-care (01) ==
LOC: CDIM 14:08
PROVIDERS: PCP Nurse Practitioner Family; Referring Provider Internal Medicine Hematology & Oncology; Visit Provider Internal Medicine Hematology & Oncology
DX: N63.15 Unspecified lump in the right breast, overlapping quadrants (principal); C50.412 Malignant neoplasm of upper-outer quadrant of left female breast
CPT/HCPCS: 76641

== ENCOUNTER 2024-07-13 23:58 | Emergency (ER) | payer MEDICARE, MEDICAID, SELFPAY ==
[2024-07-13 23:59] VITALS: BMI 27.4
--- NOTE | 2024-07-14 00:07 | EKG_ITS ---
[facility] Test Date: 2024-07-14 Pat Name: AYDEE SAUCEDO Department: Room: - Gender: Female Admissions Nurse: : 1950 Requested By: Zeferino Nelson Order Number: [id number] Reading MD: Zeferino Nelson Measurements Intervals Bishop Rate: 69 P: 58 DE: 167 QRS: 17 QRSD: 90 T: 68 QT: 387 QTc: 415 Interpretive Statements SINUS RHYTHM LOW QRS VOLTAGE IN PRECORDIAL LEADS [QRS DEFLECTION < 1.0 mV IN CHEST LEADS] Compared to ECG 11/12/2023 10:28:19 Low QRS voltage now present Myocardial infarct finding no longer present /store/S0/[id number]/ecg/[id number].pdf
[2024-07-14 00:16] VITALS: BP 146/70; PULSE 70; RESP 18; TEMP 37; O2SAT 97
--- NOTE | 2024-07-14 00:45 | XR_ITS ---
Examination: PA chest single view. TECHNIQUE: Upright PA chest single view. Examination time: July 14, 2024, 0114 hours Comparison April 08, 2023 INDICATIONS: Chest pain today. FINDINGS: Early pneumonia left lower lobe Left axillary surgical clips Normal heart size No pulmonary edema Impression : Early pneumonia left lower lobe
--- NOTE | 2024-07-14 00:45 | EDRME_ITS ---
Rapid Medical Screening Exam [facility] Arrival date/time: 07/13/24 23:58 74F with history of breast cancer, DM, and HTN presents to ED with 1 hour of chest pressure and elevated BP (apparently 230s systolic at home; patient took extra dose of normal HTN meds). Chief Complaint: Chest Pain Vital signs: Vital Signs Temperature 98.6 F 07/14/24 00:16 Pulse Rate 70 07/14/24 00:16 Respiratory Rate 18 07/14/24 00:16 Blood Pressure 146/70 H 07/14/24 00:16 Pulse Oximetry (%) 97 07/14/24 00:16 Oxygen Delivery Method Room Air 07/14/24 00:16
[2024-07-14 02:00] LABS: Basophils # (Auto) 0.1 Thou/mm3 (0.0-0.2); Basophils % (Auto) 1 % (0-2.5); Eosinophils # (Auto) 0.3 Thou/mm3 (0.0-0.5); Eosinophils % (Auto) 3 % (0-10); Hematocrit 33.9 % (36.0-46.0); Hemoglobin 11.7 g/dL (12.0-16.0); Immature Granulocytes % (Auto) 0 % (0-0); Immature Granulocytes Auto 0.02 Thou/mm3 (0.00-0.00); Lymphocytes % (Auto) 35 % (10-50); Mean Corpuscular HGB Conc 34.5 g/dl (31.0-37.0); Mean Corpuscular Hemoglobin 31.4 pg (25.0-35.0); Mean Corpuscular Volume 91 fL (80-100); Monocytes # (Auto) 0.9 Thou/mm3 (0.0-0.8); Monocytes % (Auto) 10 % (0-12); Neutrophils # (Auto) 4.3 Thou/mm3 (1.8-7.7); Neutrophils % (Auto) 51 % (37-80); Nucleated Red Blood Cell % 0 /100 WBC (0); Platelet Count 333 Thou/mm3 (140-440); Red Blood Count 3.73 Miln/mm3 (4.00-5.20); White Blood Count 8.5 Thou/mm3 (3.6-11.0)
[2024-07-14 02:11] LABS: INR 0.9 (0.9-1.3); Prothrombin Time 10.4 Seconds (9.0-12.2)
[2024-07-14 02:14] LABS: B-Type Natriuretic Peptide 21 pg/mL (0-100)
[2024-07-14 02:17] LABS: Alanine Aminotransferase 12 U/L (10-49); Albumin, Serum 4.8 gm/dL (3.4-4.8); Albumin/Globulin Ratio 2.2 (1.2-2.2); Alkaline Phosphatase 78 U/L (46-116); Anion Gap 11 (7-16); Aspartate Amino Transferase 17 U/L (0-34); BUN/Creatinine Ratio 17 Ratio (12-20); Bilirubin,Total 0.4 mg/dL (0.3-1.2); Blood Urea Nitrogen 15 mg/dL (9-23); Calcium 9.9 mg/dL (8.3-10.6); Calcium (Corrected) 9.9 mg/dL (8.5-10.1); Carbon Dioxide 30.2 mMol/L (20.0-31.0); Chloride 102 mMol/L (98-107); Creatinine (Component) 0.9 mg/dL (0.6-1.3); Estimated Creatinine Clearance 51.1 mL/min (>60); Globulin 2.2 gm/dL (2.3-3.5); Glucose 94 mg/dL (74-106); Magnesium 1.6 mg/dL (1.6-2.6); Osmolality,Calculated 285 (275-295); Potassium 3.6 mMol/L (3.4-5.1); Sodium 143 mMol/L (136-145); Troponin I < 0.020 ng/mL (0.0-0.045); eGFR > 60 See Note
--- NOTE | 2024-07-14 02:25 | PD.EDRECHK ---
ED Recheck Abnl Lab Rx-RME/HPI General Chief Complaint: Chest Pain Stated Complaint: HIGH BP, CHEST THIGHTNESS Arrival date/time: 07/13/24 23:58 RME / HPI RME / HPI narrative: 07/13/24 23:58 74F with history of breast cancer, DM, and HTN presents to ED with 1 hour of chest pressure and elevated BP (apparently 230s systolic at home; patient took extra dose of normal HTN meds). DR. AGUILAR MAIN ED EVALUATION: 74 y/o female with Hx of Transient Ischemic Attacks, Angina, Obesity, Carpal Tunnel Syndrome, Diabetes Mellitus Type 2 and SHx of Ear Surgery and Nephrectomy BIB daughter presents to ED c/o elevated blood pressure reading x 1 day. Patient reports her BP cuff is connected to the clinic. After a high BP reading,she was contacted by the clinic and advised to come to the ED for evaluation. Patient denies chest pain, headache, shortness of breath or any other associated symptoms or aggravating factors. No modifying factors, no radiation, no migration. No pain reported overall. Related Data Home Medications ?Medication ?Instructions ?Recorded ?Confirmed atorvastatin 80 mg tablet 80 mg PO QDAY 10/13/22 06/29/24 losartan 100 1 tab PO QDAY 11/27/22 06/29/24 mg-hydrochlorothiazide 25 mg tablet empagliflozin 25 mg tablet 25 mg feeding tube QPM 07/30/23 06/29/24 (Jardiance) Allergies Allergy/AdvReac Type Severity Reaction Status Date / Time No Known Allergies Allergy Verified 07/13/24 23:58 Review of Systems Review of Systems Systems Reviewed: All systems reviewed, normal except as documented Narrative Review of Systems: Gen: No fever, no chills, no weight loss EYES: No discharge, no visual changes, no pain HEENT: No ear pain, no congestion, no sore throat PULM: No shortness of breath, no cough, no congestion CV: No chest pain, no dyspnea on exertion, no palpitations, elevated blood pressure GI: No nausea, no vomiting, no diarrhea, no pain, no constipation : No frequency, no urgency, no dysuria Musc/skel: No joint pain, no back pain Skin: No rash. Psyc: No hallucinations, no depression Heme/Lymph: No easy bleeding or bruising tendencies Neuro: No weakness, no headache Past Medical History Past Medical History NEUROLOGIC: Positive Transient Ischemic Attacks (TIA) CARDIAC: Positive Cardiac Disorders and Angina GASTROINTESTINAL: Positive Gastrointestinal Disorders and Obesity REPRODUCTIVE: Positive Previous Pregnancies ( Miscarriage 3) MUSCULOSKELETAL: Positive Carpal Tunnel Syndrome ENDOCRINE: Positive Endocrine Disorders and Diabetes Mellitus Type 2 OTHER HISTORY: Positive Hospitalization (september at [facility] for stroke) Family History FAMILY HISTORY: Positive Family Cardiac Disorders, Family Gastrointestinal Problems (aunt/ colon cancer), Family Cancer and Family Surgery Surgical History SURGICAL: Positive Ear Surgery and Nephrectomy ED Exam Narrative Physical exam: GENERAL APPEARANCE: alert and oriented x 4, well-developed, well-nourished, no acute distress VITALS: All vitals were reviewed and the pulse ox is 97% on room air, which is normal according to my interpretation. HEENT: Normocephalic, atraumatic; pupils equal, round, reactive to light; EOMI; mucous membranes pink, moist; oropharynx clear NECK: Supple LUNGS: CTABL; no wheezes, no rales, no rhonchi HEART: Regular rate, regular rhythm; normal S1, S2; no murmurs ABDOMEN: non distended; normal BS; soft, no tenderness, no guarding, no rebound; no masses, no organomegaly, no hernia BACK: no CVA tenderness EXTREMITIES: atraumatic; no edema NEUROLOGIC: awake; alert and oriented x4; cranial nerves II-XII grossly intact; no focal sensory or motor deficits PSYCHIATRIC: appropriate mood and affect SKIN: warm, dry, normal color; no rashes Course Course Course Narrative: 0600: Pending official chest x-ray radiology read. Quality Measures none Orders Category Date Time Status EKG (ED ONLY) *Do not use* NOW Care 07/14/24 00:07 Completed EKG (ED Only) Stat Exams 07/14/24 00:07 Draft XR chest 1V portable Stat Exams 07/14/24 00:45 Completed B-Type Natriuretic Peptide Stat Lab 07/14/24 01:22 Completed CBC Stat Lab 07/14/24 01:22 Completed Comprehensive Metabolic Panel Stat Lab 07/14/24 01:22 Completed Magnesium Stat Lab 07/14/24 01:22 Completed Partial Thromboplastin Time Stat Lab 07/14/24 01:22 Completed Prothrombin Time with INR Stat Lab 07/14/24 01:22 Completed Troponin I Stat Lab 07/14/24 01:22 Completed Vital Signs Vital signs: Vital Signs Temperature 98.6 F 07/14/24 00:16 Pulse Rate 70 07/14/24 00:16 Respiratory Rate 18 07/14/24 00:16 Blood Pressure 146/70 H 07/14/24 00:16 Pulse Oximetry (%) 97 07/14/24 00:16 Oxygen Delivery Method Room Air 07/14/24 00:16 Recheck / Abnormal Lab / Rx MDM Narrative MDM Narrative:: Scribe Attestation: I, Miroslava Mitchell, am scribing for and in the presence of Dr. Aguilar. Provider Notation: Although this document has been carefully reviewed, there may still be some phonetic and other typographical errors. These errors are purely grammatical due to imperfections in the software program and should not be construed in any way to compromise the substance of the patient's medical care during this visit. Patient data External records reviewed:: [facility] previous records Clinical information provided by:: patient and family (Daughter) Social determinants that could affect healthcare access:: none Patient has the following chronic illnesses:: Transient Ischemic Attacks, Angina, Obesity, Carpal Tunnel Syndrome, Diabetes Mellitus Type 2 How is presenting disease/condition affected by chronic disease/condition?: exacerbated by Evaluation data The following diagnostics were reviewed and interpreted by me:: lab results, radiology exam(s) and EKG tracing(s) ( 0018: EKG manual reading, my interpretation: sinus rhythm, rate: 69 bpm, no ST elevation, Q-wave in III and v1, no acute ischemic changes, interpreted as normal.) Lab and/or radiology exams considered but not ordered:: None. Interpretation Summary: RADIOLOGY Chest X-Ray: CXR is ordered for determining etiology of elevated blood pressure. Pending official radiology read. Medications / Prescriptions Medications or Prescriptions considered but not ordered:: None. Medication administrations:: See above if any. Consultations Consultation(s) initiated? (list below): No Diagnosis Recheck Differential Diagnosis: other (Elevated BP vs Primary vs Secondary Hypertension vs Anxiety) Most likely diagnosis given after review of the tests above:: Elevated blood pressure reading. Admission Indicated Admission indicated?: not indicated Explain why admission is indicated or not indicated:: Did not meet admission criteria. Admission Request Was there a request for admission?: No Disposition Plan Disposition Plan: Discharge Discharge Attestation Discharge Attestation: The patient and all family members were given an opportunity to ask questions and understood the discharge instructions. Discharge instructions specifically effects, indications for sooner follow up or return to the emergency department, and the expected course of current diagnosis. Patient condition: Stable Discharge Plan Plan Patient Disposition: HOME (Self Care) Prescriptions/Referrals Prescriptions/Med Rec: No Action atorvastatin 80 mg Tablet 80 mg PO QDAY losartan-hydrochlorothiazide 100-25 mg Tablet 1 tab PO QDAY Jardiance 25 mg Tablet 25 mg feeding tube QPM Referrals: Litzy Silver NP [Primary Care Provider] - In 1 week Problem List Clinical Impression: Elevated blood pressure reading Patient/Caregiver Discharge Instructions Education Materials: ED Hypertension, Established Print Language: Greenlandic Stand Alone Forms: Jerica Award Info., Patient Portal Info Letter
[2024-07-14 02:37] VITALS: BP 143/77; PULSE 69; RESP 18; TEMP 36.9; O2SAT 97
== END 2024-07-14 03:09 | disposition home or self-care (01) ==
PROVIDERS: Physician Assistant; Emergency Provider Emergency Medicine; PCP Nurse Practitioner Family
DX: I10 Essential (primary) hypertension (principal); R07.9 Chest pain, unspecified; R94.31 Abnormal electrocardiogram [ECG] [EKG]
CPT/HCPCS: 36415; 71045; 80053; 83735; 83880; 84484; 85025; 85610; 85730; 93005; 99283

== ENCOUNTER 2024-08-02 08:05 | Outpatient (RCR) | payer MEDICARE, MEDICAID, SELFPAY ==
--- NOTE | 2024-08-03 14:16 | CTCFLWUP_ITS ---
Patient: AYDEE SAUCEDO : 1950 Page 4 of 6 FOLLOW UP NOTE DATE OF SERVICE: 07/26/2024 NAME: AYDEE SAUCEDO ACCOUNT: [id number] : 1950 AGE: 74 INTERVAL HISTORY: Chief Complaint Follow-up for breast cancer treatment, discussion of Oncotype Dx test results History of Present Illness Sabrnia Owens is a female patient with a history of breast cancer presenting for follow-up of her Oncotype Dx test results and discussion of her treatment plan. The patient's Oncotype Dx test score is 12, which is considered very good. Based on this score, it has been determined that there is no benefit to administering chemotherapy. The patient is currently taking a hormone-blocking pill, and with this treatment alone, her risk of cancer recurrence in 10 years is less than 3 percent. She is advised to continue taking this medication for the next 7 years. The patient has a history of small nodules in both breasts, first in the left breast and then in the right breast. Due to this history, an MRI of both breasts has been recommended to further evaluate these nodules. The patient is also being considered for radiation therapy, which is typically recommended for women under 70 years old. This will be further discussed with Dr. Ramon. Regarding treatment adherence, the patient is instructed to continue taking her hormone-blocking medication. Additionally, she is advised to take calcium and vitamin D supplements daily, for which a prescription will be provided. Medications and Supplements - Hormone-blocking pill - Taking for breast cancer treatment - Needs to continue for next 7 years - Calcium - Taking daily - Vitamin D - Taking daily ONCOLOGY HISTORY: DIAGNOSIS: Malignant neoplasm of upper-outer quadrant of left female breast [ICD10] C50.412 DATE OF DIAGNOSIS: 12/23/2023 STAGE/TNM: Likely stage I ER/MO positive HER2 negative TREATMENT HISTORY: Care?Plan Start?Date Cycle Day Intent HISTORY OF PRESENT ILLNESS: 74-year-old female who had an abnormal appearing mammogram on September 27 revealing a 14 mm BI-RADS 4 upper outer quadrant left breast.. Patient underwent stereotactic core biopsy on 12/23/2023 revealing invasive ductal carcinoma largest focus 0.8 cm 95% ER +5% ER positive and HER2/burke negative Ki67 5 to 10%. Patient elects to get cancer treatment in [place] reportedly had interferon treatments for 2 months duration 30 IV treatments between late January and March. States that she does not want to go back there and would like to conventional treatments [place] Has never seen any other doctor in [place] for this problem since the biopsy performed 12/23/2023. States that she has never felt a lump in her breast or axilla. Age OTHER MEDICAL HISTORY/CONDITIONS: HYPERTENSION DIABETES TYPE 2 STROKE SEPTEMBER 2023 RECTAL PROLASPSE SURGERY LEFT SHOULDER ROTATOR CUFF SX FAMILY HISTORY: Father:?DENIES Mother:?DENIES Siblin BROTHER TESTICULAR CANCER, SISTER COLON CANCER Children:?DENIES SOCIAL HISTORY: Occupational?History:?RETIRED [employer] Education?Level:?Completed something less than 8th grade Marital?Status:? 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 anastrozole - 1 mg 1 tab Daily 2. atorvastatin - As directed 3. calcium carbonate-vit D3-min - 600 mg calcium- 400 unit 1 tab twice Daily 4. escitalopram oxalate - 10 mg 1 tab As directed 5. levoFLOXacin - 500 mg tab As directed 6. Linzess - As directed 7. lorazepam - 0.5 mg 1 tab As directed 8. losartan - As directed 9. metFORMIN - 500 mg 1 tab Daily Medications Last Reconciled by Nida Robert MA on 07/26/2024 ALLERGIES: No Known Allergies; No Known Drug Allergies REVIEW OF SYSTEMS: A complete 14-point review of systems was performed and is negative except as noted in interval history. PHYSICAL EXAMINATION: VITAL SIGNS: Temperature?98.1, B/P?144/77, Oxygen?Saturation?97% Weight?152?lbs (Change?since?07/06/24:?71?lbs) PAIN: 0 - No pain ECOG Performance Status: 0 - Asymptomatic and fully active GENERAL APPEARANCE: Appears well, in no apparent distress, appropriately interactive. HEENT: Normocephalic, no temporal wasting, normal conjunctiva, no scleral icterus, normal hearing, lips without lesions, neck normal range of motion. CARDIOVASCULAR: Not assessed. PULMONARY: Normal respiratory effort, no respiratory distress or use of accessory muscles, speaking in full sentences, no tachypnea. EXTREMITIES: No pedal edema or cyanosis. SKIN: Normal skin appearance. NEUROLOGIC: Alert and oriented x4. PSHYCHIATRIC: Appropriate affect, mood normal, behavior normal, intact thought and speech. Left breast surgical site healing. Right breast have palpable mass. LABORATORY DATA: I have personally reviewed and interpreted each of the patient?s relevant lab tests, abnormal findings are below: Laboratory, Imaging, and Diagnostic Test Results - Oncotype Dx test score: 12 Date 07/07/24 07/14/24 ??WHITE?BLOOD?COUNT?(Thou/mm3) 6.1 8.5 ??RED?BLOOD?COUNT?(Miln/mm3) 3.84?L 3.73?L ??HEMOGLOBIN?(gm/dl) 12.0 11.7?L ??HEMATOCRIT?(%) 36.5 33.9?L ??PLATELET?COUNT?(Thou/mm3) 404 333 ??NEUTROPHILS?%,?AUTO?(%) 51 51 ??LYMPH?%,?AUTO?(%) 37 35 ??NEUTROPHILS,?AUTO?(Thou/mm3) 3.1 4.3 ??GLUCOSE,RANDOM?(mg/dL) ? 94 ??BLOOD?UREA?NITROGEN?(mg/dL) ? 15 ??CREATININE?(mg/dL) ? 0.90 ??SODIUM?(mmol/L) ? 143 ??POTASSIUM?(mmol/L) ? 3.6 ??CHLORIDE?(mmol/L) ? 102 ??CrCl?(CandG)?(ml/min) ? 32.77 ??AST/SGOT?(Unit/L) ? 17 ??ALT/SGPT?(Unit/L) ? 12 ??ALKALINE?PHOSPHATASE?(Unit/L) ? 78 ??BILIRUBIN,?TOTAL?(mg/dL) ? 0.4 ??PROTEIN?TOTAL?(gm/dl) ? 7.0 ??ALBUMIN,?SERUM?(gm/dl) ? 4.8 ??GLOBULIN?(gm/dl) ? 2.2?L ??ALBUMIN/GLOBULIN?RATIO ? 2.2 ??CALCIUM,?SERUM?(mg/dL) ? 9.9 ??CALCIUM?SERUM?(CORRECTED)?(mg/dL) ? 9.9 ??MAGNESIUM?(mg/dL) ? 1.6 ASSESSMENT/PLAN: juanita Owens, female patient with breast cancer, presenting for discussion of Oncotype Dx test results and treatment planning. Breast Cancer Early stage breast cancer Estrogen positive on anastrozole 1 mg daily Assessment: Patient's Oncotype Dx score is 12, which is considered very good. This low score indicates a low risk of cancer recurrence and suggests that there would be no significant benefit from chemotherapy. With the current hormone- blocking medication, the risk of cancer recurrence in 10 years is less than 3 percent. Small nodules were previously identified in both breasts, necessitating further investigation. Plan: - Continue current hormone-blocking medication for the next 7 years - Order MRI of both breasts to evaluate previously identified nodules - Refer to Dr. Acosta (breast surgeon) for further evaluation and possible ultrasound-guided biopsy of breast nodules - Refer to Dr. Ramon for discussion of radiation therapy - Prescribe calcium and vitamin D supplements daily - Follow-up appointment in 3 months RETURN TO CLINIC: 3 months BILLING AND COMPLIANCE: I reviewed external records from providers outside my specialty as summarized above. I spent a total of 50 minutes on this patient?s care on the day of their visit excluding time spent related to any billed procedures. This time includes time spent with the patient as well as time spent documenting in the medical record, reviewing patients records and tests, obtaining history, placing orders, communicating with other healthcare professionals, counseling the patient, family or caregiver, and/or care coordination for the diagnoses above. Electronically Signed by: Yoel Bonner MD T: 11:14 PM CC: PCP: Litzy Silver Referring: Litzy Silver This document was completed utilizing speech recognition software. Grammatical errors, random word insertions, pronoun errors, and incomplete sentences are an occasional consequence of this system due to software limitations, ambient noise, and hardware issues. Any formal questions or concerns about the content, text or information contained within the body of this dictation should be directly addressed to the provider for clarification.
== END 2024-08-12 23:59 | disposition home or self-care (01) ==
LOC: SCTC 08:05
PROVIDERS: PCP Nurse Practitioner Family; Referring Provider Nurse Practitioner Family; Visit Provider Internal Medicine Hematology & Oncology
DX: C50.412 Malignant neoplasm of upper-outer quadrant of left female breast (principal); Z17.0 Estrogen receptor positive status [ER+]; Z17.21 Progesterone receptor positive status; Z17.32 Human epidermal growth factor receptor 2 negative status; Z79.811 Long term (current) use of aromatase inhibitors; N63.20 Unspecified lump in the left breast, unspecified quadrant; N63.10 Unspecified lump in the right breast, unspecified quadrant
CPT/HCPCS: 77014; 77290; 77295; 77300; 77334; 99212; G0463

== ENCOUNTER → 2024-08-11 | Outpatient (CLI) | payer MEDICARE, MEDICAID, SELFPAY ==
--- NOTE | 2024-08-11 12:00 | XR_ITS ---
Examination: CT abdomen with intravenous contrast. Coronal 2-D reconstructions. Sagittal 2-D reconstructions. Date and time of exam:August 11, 2024 1211 hours INDICATIONS: Mid abdominal pain diarrhea beginning 2 days ago, urinary incontinence several months CTDI: vol (mGy): 8.63 DLP: (mGycm): 238 Technique: Axial images of the abdomen have been obtained, 3 mm slice thickness, 60 cc Isovue-370 intravenous 2-D sagittal coronal reconstructions Low dose protocols were performed. One or more of the following dose reduction techniques were used; automated exposure control, adjustment of the mA and/or KV according to patient size, use of iterative reconstruction technique. Findings: No focal liver or splenic lesions Contracted gallbladder No pancreatic or adrenal mass Moderate renal parenchymal scar formation, no hydronephrosis No bowel obstruction No ascites Moderate osteopenia IMPRESSION: Moderate bilateral renal parenchymal scar formation No renal or ureteral calculi, no hydronephrosis No bowel obstruction
== END | disposition home or self-care (01) ==
LOC: CCTX 11:20
PROVIDERS: PCP Nurse Practitioner Family; Referring Provider Urology; Visit Provider Urology
DX: N28.89 Other specified disorders of kidney and ureter (principal)
CPT/HCPCS: 74160; A4649; Q9967

== ENCOUNTER 2024-08-24 11:35 | Day surgery (SDC) | payer MEDICARE, MEDICAID, SELFPAY ==
[2024-08-24] VITALS (9 sets, daily range): BP systolic 118–151; BP diastolic 52–74; PULSE 64–74; RESP 13–21; TEMP 36.6; O2SAT 95–100; BMI 26.3
[2024-08-24] MEDS: SODIUM CHLORIDE 0.9% 500 ML 500 ML 20 ML IV (13:29)
[2024-08-24] MEDS: fentaNYL CIT INJ 50 mCg/ML AMP 2ML (ASD USE ONLY) IVP (13:30)
[2024-08-24] MEDS: MIDAZOLAM INJ 1 MG/ML VIAL 2 ML (ASD USE ONLY) 2 MG IVP (13:30)
== END 2024-08-24 14:25 | disposition home or self-care (01) ==
PROVIDERS: PCP Nurse Practitioner Family; Referring Provider Internal Medicine Gastroenterology; Visit Provider Internal Medicine Gastroenterology
PROC: 0DBE8ZX Excision of Large Intestine, Via Natural or Artificial Opening Endoscopic, Diagnostic (ICD-10-PCS; CPT 45380; principal; 2024-08-24 13:00)
DX: K64.9 Unspecified hemorrhoids (principal); Z91.198 Patient's noncompliance with other medical treatment and regimen for other reason
CPT/HCPCS: 45378; J2250; J3010; J7040

== ENCOUNTER → 2024-08-28 | Outpatient (BNVA) | payer MEDICARE, MEDICAID, SELFPAY | END | disposition home or self-care (01) | PROVIDERS: PCP Nurse Practitioner Family; Referring Provider Nurse Practitioner Family; Visit Provider Urology | DX: N35.92 Unspecified urethral stricture, female (principal); K62.3 Rectal prolapse; C50.919 Malignant neoplasm of unspecified site of unspecified female breast; I10 Essential (primary) hypertension; E11.9 Type 2 diabetes mellitus without complications; E78.00 Pure hypercholesterolemia, unspecified; Z86.73 Personal history of transient ischemic attack (TIA), and cerebral infarction without residual deficits | CPT/HCPCS: 52281; 81003; 96372; A4217; A4649; C1894; J1580; A9270 ==

== ENCOUNTER → 2024-08-28 | Outpatient (CLI) | payer MEDICARE, MEDICAID, SELFPAY ==
[2024-08-28 14:06] LABS: Alanine Aminotransferase 13 U/L (10-49); Albumin, Serum 4.8 gm/dL (3.4-4.8); Albumin/Globulin Ratio 2.4 (1.2-2.2); Alkaline Phosphatase 74 U/L (46-116); Anion Gap 9 (7-16); Aspartate Amino Transferase 12 U/L (0-34); BUN/Creatinine Ratio 19 Ratio (12-20); Bilirubin,Total 0.3 mg/dL (0.3-1.2); Blood Urea Nitrogen 17 mg/dL (9-23); Calcium 9.9 mg/dL (8.3-10.6); Calcium (Corrected) 9.9 mg/dL (8.5-10.1); Carbon Dioxide 27.6 mMol/L (20.0-31.0); Chloride 106 mMol/L (98-107); Creatinine (Component) 0.9 mg/dL (0.6-1.3); Glucose 103 mg/dL (74-106); Osmolality,Calculated 286 (275-295); Potassium 4.3 mMol/L (3.4-5.1); Sodium 143 mMol/L (136-145); Total Protein 6.8 gm/dL (5.7-8.2); eGFR > 60 See Note
== END | disposition home or self-care (01) ==
LOC: COPL 12:35 → SCTO 12:48
PROVIDERS: PCP Nurse Practitioner Family; Referring Provider Internal Medicine Hematology & Oncology; Visit Provider Internal Medicine Hematology & Oncology
DX: C50.412 Malignant neoplasm of upper-outer quadrant of left female breast (principal)
CPT/HCPCS: 36415; 80053

== ENCOUNTER → 2024-08-29 | Outpatient (CLI) | payer MEDICARE, MEDICAID, SELFPAY ==
--- NOTE | 2024-08-29 12:00 | XR_ITS ---
Examination: MRI breasts bilateral without intravenous contrast MRI breast bilateral with intravenous contrast Date and time: 12/29/2024 1209 hours COMPARISON: Right breast sonogram July 10, 2024, mammogram June 14, 2024, breast MRI 11/18/2022 INDICATIONS: Diagnosis malignant neoplasm upper outer quadrant left female breast December 2023, lumpectomy and began radiation August 14, 2024, patient complaining of right breast lump, 3:00 nodule 7 x 7 mm on right breast sonogram July 02, 2024, left breast sonogram May 23, 2024 2:00 oval mass indistinct margins 15 x 11 x 18 mm TECHNIQUE AND FINDINGS: Multiple bilateral breast MRI images pre and post intravenous administration 13 cc gadolinium On this study heterogeneous signal throughout the breasts with mild background breast enhancement Extensive scar formation left breast 2:00 position with marked skin thickening, post treatment changes secondary to the patient's lumpectomy Circumscribed nodule 7 mm central to 3:00 position right breast This nodule does not show rapid wash-in and rapid washout on the kinetic analysis curves IMPRESSION: BI-RADS Category 2: Benign findings Recommend 6 month bilateral mammography follow-up, December 2024
== END | disposition home or self-care (01) ==
PROVIDERS: Referring Provider Internal Medicine Hematology & Oncology; Visit Provider Internal Medicine Hematology & Oncology
DX: C50.412 Malignant neoplasm of upper-outer quadrant of left female breast (principal); N64.89 Other specified disorders of breast; Z90.12 Acquired absence of left breast and nipple; N63.15 Unspecified lump in the right breast, overlapping quadrants
CPT/HCPCS: 77049; A9579; C8908

== ENCOUNTER 2024-09-08 10:24 | Outpatient (RCR) | payer MEDICARE, MEDICAID, SELFPAY ==
--- NOTE | 2024-08-14 12:00 | CTCSNOTE_ITS ---
[facility] [address] [place], [place] [address] Simple Simulation Note Date: 08/14/2024 MR#: [id number] Name: AYDEE SAUCEDO : 1950 Port was taken and the field size location and blocks were checked. (A) The port was noted to be in ideal position along with its blocks. Electronically signed by: Solomon Ramon MD, DABR 08/14/2024 11:58 AM
== END 2024-09-11 23:59 | disposition home or self-care (01) ==
LOC: SCTC 10:24
PROVIDERS: PCP Nurse Practitioner Family; Referring Provider Radiology Therapeutic Radiology; Visit Provider Radiology Therapeutic Radiology
DX: Z51.0 Encounter for antineoplastic radiation therapy (principal); C50.412 Malignant neoplasm of upper-outer quadrant of left female breast; Z17.0 Estrogen receptor positive status [ER+]; Z17.21 Progesterone receptor positive status; Z17.32 Human epidermal growth factor receptor 2 negative status; Z79.811 Long term (current) use of aromatase inhibitors; Z90.12 Acquired absence of left breast and nipple
CPT/HCPCS: 77280; 77290; 77300; 77332; 77336; 77412; 77417

== ENCOUNTER 2024-09-20 08:59 | Outpatient (RCR) | payer MEDICARE, MEDICAID, SELFPAY ==
--- NOTE | 2024-09-20 10:03 | CTCTSUMM_ITS ---
[facility] [address] [place], [place] [address] Treatment Summary Date: 09/20/2024 MR#: [id number] Name: AYDEE SAUCEDO : 1950 Dx: C50.412 Referring Physician: ASHELY Mark (A) Diagnosis: [ICD10] C50.412 Malignant neoplasm of upper-outer quadrant of left female breast (B) Aim of Treatment: ??Curative (C) Concomitant Chemotherapy: No (D) Radiation Dates: 08/14/2024 through 09/08/2024 Treatment Prescription UOQ boost Electron boost 15 MeV E- 1,000 cGy 5 200 cGy Approved L breast 2 FIELD SEG Mixed Mode 4,005 cGy 15 267 cGy Approved (E) All francis were treated using customized MLC Blocks (F) Finding at Discharge: Seen for first follow-up in 09/20/2024. At the expected skin reaction which was resolving along with her fatigue. (G) Discharge Instructions and F/U Appt was given: The patient was also advised to continue follow-up with Dr. Bonner and primary care physician: CC: ASHELY Mark Electronically signed by: Solomon Ramon MD, KALINA 09/20/2024 10:01 AM
== END 2024-10-12 23:59 | disposition home or self-care (01) ==
LOC: SCTC 08:59
PROVIDERS: PCP Nurse Practitioner Family; Referring Provider Nurse Practitioner Family; Visit Provider Radiology Therapeutic Radiology
DX: C50.412 Malignant neoplasm of upper-outer quadrant of left female breast (principal); Z92.3 Personal history of irradiation
CPT/HCPCS: 99212; G0463

== ENCOUNTER 2024-10-03 08:30 | Day surgery (SDC) | payer MEDICARE, MEDICAID, SELFPAY ==
[2024-10-02 16:52] VITALS: BMI 27.4
[2024-10-03] VITALS (10 sets, daily range): BP systolic 107–168; BP diastolic 57–96; PULSE 61–76; RESP 12–21; TEMP 36.2–36.5; O2SAT 92–100
[2024-10-03] MEDS: fentaNYL CIT INJ 50 mCg/ML AMP 2ML (ASD USE ONLY) IVP (11:30)
[2024-10-03] MEDS: MIDAZOLAM INJ 1 MG/ML VIAL 2 ML (ASD USE ONLY) 2 MG IVP (11:30)
[2024-10-03] MEDS: RINGERS LACTATED 1000 ML 1,000 ML 125 ML IV (11:30)
== END 2024-10-03 12:00 | disposition home or self-care (01) ==
PROVIDERS: PCP Nurse Practitioner Family; Referring Provider Internal Medicine Gastroenterology; Visit Provider Internal Medicine Gastroenterology
PROC: 0DBE8ZX Excision of Large Intestine, Via Natural or Artificial Opening Endoscopic, Diagnostic (ICD-10-PCS; CPT 45380; principal; 2024-10-03 08:15)
DX: D12.5 Benign neoplasm of sigmoid colon (principal); K64.1 Second degree hemorrhoids; I10 Essential (primary) hypertension
CPT/HCPCS: 45385; 45380; J2250; J3010; J7120

== ENCOUNTER 2024-10-19 08:20 | Day surgery (SDC) | payer MEDICARE, MEDICAID, SELFPAY ==
[2024-10-18 13:54] VITALS: BMI 27.1
[2024-10-19] VITALS (10 sets, daily range): BP systolic 95–169; BP diastolic 45–96; PULSE 56–71; RESP 12–18; TEMP 36.4–36.7; O2SAT 96–100; BMI 25.6
[2024-10-19] MEDS: RINGERS LACTATED 1000 ML 1,000 ML 20 ML IV (10:02)
[2024-10-19] MEDS: fentaNYL CIT INJ 50 mCg/ML AMP 2ML (ASD USE ONLY) IVP (10:05)
[2024-10-19] MEDS: MIDAZOLAM INJ 1 MG/ML VIAL 2 ML (ASD USE ONLY) 2 MG IVP (10:05)
== END 2024-10-19 11:05 | disposition home or self-care (01) ==
PROVIDERS: PCP Nurse Practitioner Family; Referring Provider Internal Medicine Gastroenterology; Visit Provider Internal Medicine Gastroenterology
PROC: 0DBE8ZX Excision of Large Intestine, Via Natural or Artificial Opening Endoscopic, Diagnostic (ICD-10-PCS; CPT 45380; principal; 2024-10-19 09:00)
DX: R10.84 Generalized abdominal pain (principal); I10 Essential (primary) hypertension; K64.1 Second degree hemorrhoids
CPT/HCPCS: 45380; J2250; J3010; J7120

== ENCOUNTER 2024-10-26 10:46 | Outpatient (RCR) | payer MEDICARE, MEDICAID, SELFPAY ==
--- NOTE | 2024-10-26 11:51 | CTCFLWUP_ITS ---
Patient: AYDEE SAUCEDO : 1950 Page 4 of 6 FOLLOW UP NOTE DATE OF SERVICE: 10/26/2024 NAME: AYDEE SAUCEDO ACCOUNT: [id number] : 1950 AGE: 74 INTERVAL HISTORY: Chief Complaint Follow-up for breast cancer treatment, discussion of Oncotype Dx test results History of Present Illness Sabrina Owens is a female patient with a history of breast cancer presenting for follow-up of her Oncotype Dx test results and discussion of her treatment plan. The patient's Oncotype Dx test score is 12, which is considered very good. Based on this score, it has been determined that there is no benefit to administering chemotherapy. The patient is currently taking a hormone-blocking pill, and with this treatment alone, her risk of cancer recurrence in 10 years is less than 3 percent. She is advised to continue taking this medication for the next 7 years. The patient has a history of small nodules in both breasts, first in the left breast and then in the right breast. Due to this history, an MRI of both breasts has been recommended to further evaluate these nodules. The patient is also being considered for radiation therapy, which is typically recommended for women under 70 years old. This will be further discussed with Dr. Ramon. Regarding treatment adherence, the patient is instructed to continue taking her hormone-blocking medication. Additionally, she is advised to take calcium and vitamin D supplements daily, for which a prescription will be provided. Medications and Supplements - Hormone-blocking pill - Taking for breast cancer treatment - Needs to continue for next 7 years - Calcium - Taking daily - Vitamin D - Taking daily ONCOLOGY HISTORY:?CloneBlock Oncology Hx? DIAGNOSIS: Malignant neoplasm of upper-outer quadrant of left female breast [ICD10] C50.412 DATE OF DIAGNOSIS: 12/23/2023 STAGE/TNM: Likely stage I ER/WI positive HER2 negative TREATMENT HISTORY: Care?Plan Start?Date Cycle Day Intent HISTORY OF PRESENT ILLNESS: 74-year-old female who had an abnormal appearing mammogram on September 27 revealing a 14 mm BI-RADS 4 upper outer quadrant left breast.. Patient underwent stereotactic core biopsy on 12/23/2023 revealing invasive ductal carcinoma largest focus 0.8 cm 95% ER +5% ER positive and HER2/burke negative Ki67 5 to 10%. Patient elects to get cancer treatment in [place] reportedly had interferon treatments for 2 months duration 30 IV treatments between late January and March. States that she does not want to go back there and would like to conventional treatments here in [place]. Has never seen any other doctor in [place] for this problem since the biopsy performed 12/23/2023. States that she has never felt a lump in her breast or axilla. Age OTHER MEDICAL HISTORY/CONDITIONS: HYPERTENSION DIABETES TYPE 2 STROKE SEPTEMBER 2023 RECTAL PROLASPSE SURGERY LEFT SHOULDER ROTATOR CUFF SX FAMILY HISTORY: Father:?DENIES Mother:?DENIES Siblin BROTHER TESTICULAR CANCER, SISTER COLON CANCER Children:?DENIES SOCIAL HISTORY: Occupational?History:?RETIRED [employer] Education?Level:?Completed something less than 8th grade Marital?Status:? 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 anastrozole - 1 mg 1 tab Daily 2. atorvastatin - As directed 3. calcium carbonate-vit D3-min - 600 mg calcium- 400 unit 1 tab twice Daily 4. escitalopram oxalate - 10 mg 1 tab As directed 5. levoFLOXacin - 500 mg tab As directed 6. Linzess - As directed 7. lorazepam - 0.5 mg 1 tab As directed 8. losartan - As directed 9. metFORMIN - 500 mg 1 tab Daily?Palabra Meds? Medications Last Reconciled by Nida Russo MD on 10/26/2024 ALLERGIES: No Known Allergies; No Known Drug Allergies REVIEW OF SYSTEMS: A complete 14-point review of systems was performed and is negative except as noted in interval history. PHYSICAL EXAMINATION:?CloneBlock PE? VITAL SIGNS: Temperature?98.5, B/P?153/77, Oxygen?Saturation?97% Weight?148?lbs PAIN: 0 - No pain GENERAL APPEARANCE: Appears well, in no apparent distress, appropriately interactive. HEENT: Normocephalic, no temporal wasting, normal conjunctiva, no scleral icterus, normal hearing, lips without lesions, neck normal range of motion. CARDIOVASCULAR: Not assessed. PULMONARY: Normal respiratory effort, no respiratory distress or use of accessory muscles, speaking in full sentences, no tachypnea. EXTREMITIES: No pedal edema or cyanosis. SKIN: Normal skin appearance. NEUROLOGIC: Alert and oriented x4. PSHYCHIATRIC: Appropriate affect, mood normal, behavior normal, intact thought and speech. Left breast surgical site healing. Right breast have palpable mass. LABORATORY DATA: I have personally reviewed and interpreted each of the patient?s relevant lab tests, abnormal findings are below: Date 07/14/24 08/28/24 ??WHITE?BLOOD?COUNT?(Thou/mm3) 8.5 ? ??RED?BLOOD?COUNT?(Miln/mm3) 3.73?L ? ??HEMOGLOBIN?(gm/dl) 11.7?L ? ??HEMATOCRIT?(%) 33.9?L ? ??PLATELET?COUNT?(Thou/mm3) 333 ? ??NEUTROPHILS?%,?AUTO?(%) 51 ? ??LYMPH?%,?AUTO?(%) 35 ? ??NEUTROPHILS,?AUTO?(Thou/mm3) 4.3 ? ??GLUCOSE,RANDOM?(mg/dL) 94 103 ??BLOOD?UREA?NITROGEN?(mg/dL) 15 17 ??CREATININE?(mg/dL) 0.90 0.90 ??SODIUM?(mmol/L) 143 143 ??POTASSIUM?(mmol/L) 3.6 4.3 ??CHLORIDE?(mmol/L) 102 106 ??CrCl?(CandG)?(ml/min) 32.77 59.88 ??AST/SGOT?(Unit/L) 17 12 ??ALT/SGPT?(Unit/L) 12 13 ??ALKALINE?PHOSPHATASE?(Unit/L) 78 74 ??BILIRUBIN,?TOTAL?(mg/dL) 0.4 0.3 ??PROTEIN?TOTAL?(gm/dl) 7.0 6.8 ??ALBUMIN,?SERUM?(gm/dl) 4.8 4.8 ??GLOBULIN?(gm/dl) 2.2?L 2.0?L ??ALBUMIN/GLOBULIN?RATIO 2.2 2.4?H ??CALCIUM,?SERUM?(mg/dL) 9.9 9.9 ??CALCIUM?SERUM?(CORRECTED)?(mg/dL) 9.9 9.9 ??MAGNESIUM?(mg/dL) 1.6 ? ASSESSMENT/PLAN:?Analisa Boyerinder Assessment/Plan? juanita Owens, female patient with breast cancer, presenting for discussion of Oncotype Dx test results and treatment planning. Breast Cancer Early stage breast cancer Estrogen positive on anastrozole 1 mg daily Assessment: Patient's Oncotype Dx score is 12, which is considered very good. This low score indicates a low risk of cancer recurrence and suggests that there would be no significant benefit from chemotherapy. With the current hormone- blocking medication, the risk of cancer recurrence in 10 years is less than 3 percent. Small nodules were previously identified in both breasts, necessitating further investigation. - Continue current hormone-blocking medication for the next 7 years -MRI of breast normal Cont calcium and vit D3 ORDERS: Order # Description [id number] DXA L-Spine and Hip [id number] Comprehensive Metabolic Panel - 12 + CBC with Auto Diff + [id number] MD Follow Up 6 Month [id number] Bilateral + RETURN TO CLINIC: I reviewed the diagnosis, prognosis, and recommended treatment/procedure options with the patient (and/or their legal ambulatory service representative), including the potential benefits, risks, side effects and alternative therapies. We also discussed the option of no treatment and the possibility of clinical trial participation, if applicable. All questions were addressed, and they demonstrated understanding. They provided informed consent to proceed with the proposed plan of care. BILLING AND COMPLIANCE: I reviewed external records from providers outside my specialty as summarized above. I spent a total of 50 minutes on this patient?s care on the day of their visit excluding time spent related to any billed procedures. This time includes time spent with the patient as well as time spent documenting in the medical record, reviewing patients records and tests, obtaining history, placing orders, communicating with other healthcare professionals, counseling the patient, family or caregiver, and/or care coordination for the diagnoses above. Electronically Signed by: Yoel Bonner MD T: 11:49 AM CC: PCP: Litzy Silver Referring: Litzy Silver This document was completed utilizing speech recognition software. Grammatical errors, random word insertions, pronoun errors, and incomplete sentences are an occasional consequence of this system due to software limitations, ambient noise, and hardware issues. Any formal questions or concerns about the content, text or information contained within the body of this dictation should be directly addressed to the provider for clarification.
== END 2024-11-12 23:59 | disposition home or self-care (01) ==
LOC: SCTC 10:46
PROVIDERS: PCP Nurse Practitioner Family; Referring Provider Nurse Practitioner Family; Visit Provider Internal Medicine Hematology & Oncology
DX: C50.412 Malignant neoplasm of upper-outer quadrant of left female breast (principal); Z17.0 Estrogen receptor positive status [ER+]; Z17.21 Progesterone receptor positive status; Z17.32 Human epidermal growth factor receptor 2 negative status; Z79.811 Long term (current) use of aromatase inhibitors
CPT/HCPCS: 99212; G0463

== ENCOUNTER → 2024-11-06 | Outpatient (CLI) | payer MEDICARE, MEDICAID, SELFPAY ==
[2024-11-06 12:12] LABS: Basophils # (Auto) 0.1 Thou/mm3 (0.0-0.2); Basophils % (Auto) 1 % (0-2.5); Eosinophils # (Auto) 0.1 Thou/mm3 (0.0-0.5); Eosinophils % (Auto) 3 % (0-10); Hematocrit 33.9 % (36.0-46.0); Hemoglobin 11.1 g/dL (12.0-16.0); Immature Granulocytes Auto 0.03 Thou/mm3 (0.00-0.00); Lymphocytes # (Auto) 1.7 Thou/mm3 (1.0-4.8); Lymphocytes % (Auto) 33 % (10-50); Mean Corpuscular HGB Conc 32.7 g/dl (31.0-37.0); Mean Corpuscular Hemoglobin 30.2 pg (25.0-35.0); Mean Corpuscular Volume 92 fL (80-100); Monocytes # (Auto) 0.5 Thou/mm3 (0.0-0.8); Monocytes % (Auto) 10 % (0-12); Neutrophils # (Auto) 2.8 Thou/mm3 (1.8-7.7); Neutrophils % (Auto) 53 % (37-80); Nucleated Red Blood Cell # 0.00 Thou/mm3 (0.00-0.00); Nucleated Red Blood Cell % 0 /100 WBC (0); Platelet Count 342 Thou/mm3 (140-440); RDW Standard Deviation 46.4 fL (36.4-46.3); Red Blood Count 3.67 Miln/mm3 (4.00-5.20); White Blood Count 5.3 Thou/mm3 (3.6-11.0)
[2024-11-06 12:28] LABS: Glucose Estimated Average 151 mg/dL (80-131); Hemoglobin A1C 6.9 % Hgb (4.8-6.0)
[2024-11-06 12:33] LABS: Alanine Aminotransferase 11 U/L (10-49); Albumin, Serum 4.6 gm/dL (3.4-4.8); Albumin/Globulin Ratio 2.1 (1.2-2.2); Alkaline Phosphatase 70 U/L (46-116); Anion Gap 10 (7-16); Aspartate Amino Transferase 15 U/L (0-34); BUN/Creatinine Ratio 20 Ratio (12-20); Bilirubin,Total 0.5 mg/dL (0.3-1.2); Blood Urea Nitrogen 16 mg/dL (9-23); Calcium 10.3 mg/dL (8.3-10.6); Calcium (Corrected) 10.3 mg/dL (8.5-10.1); Carbon Dioxide 28.2 mMol/L (20.0-31.0); Chloride 102 mMol/L (98-107); Creatinine (Component) 0.8 mg/dL (0.6-1.3); Free T4 (Free Thyroxine) 1.03 ng/dL (0.89-1.76); Globulin 2.2 gm/dL (2.3-3.5); Glucose 136 mg/dL (74-106); Osmolality,Calculated 282 (275-295); Potassium 4.0 mMol/L (3.4-5.1); Sodium 140 mMol/L (136-145); Thyroid Stimulating Hormone 1.67 uIU/mL (0.55-4.78); Total Protein 6.8 gm/dL (5.7-8.2); eGFR > 60 See Note
== END | disposition home or self-care (01) ==
LOC: COPL 11:28
PROVIDERS: PCP Nurse Practitioner Family; Referring Provider Nurse Practitioner Family; Visit Provider Nurse Practitioner Family
DX: I10 Essential (primary) hypertension (principal); E11.21 Type 2 diabetes mellitus with diabetic nephropathy
CPT/HCPCS: 36415; 80053; 83036; 84439; 84443; 85025

== ENCOUNTER → 2024-11-14 | Outpatient (CLI) | payer MEDICARE, MEDICAID, SELFPAY ==
--- NOTE | 2024-11-14 10:01 | XR_ITS ---
Examination: Hand, right 3 views Technique: Hand AP, oblique, lateral 3 views Date and time of exam: November 14, 2024 1015 hours INDICATIONS: Right hand wrist pain 5 years, history carpal tunnel syndrome FINDINGS: Severe osteopenia Small erosions distal third and second metacarpals Mild diffuse narrowing joints of the wrist and hand No fracture Minimal osteoarthritis distal interphalangeal joints second through fifth digits and interphalangeal joint first digit IMPRESSION: Arthritic change as above
--- NOTE | 2024-11-14 10:01 | XR_ITS ---
Examination: Wrist, right 3 views Technique: Wrist AP, oblique, lateral 3 views Date and time of exam: November 14, 2024 10:15 AM INDICATIONS: Wrist pain 5 years. FINDINGS: Small erosions distal second and third metacarpals. Severe osteopenia. Mild diffuse narrowing joints of the wrist including carpometacarpal joints No fractures IMPRESSION: Small erosive changes involving the distal third and second metacarpals, clinical correlation advised.
== END | disposition home or self-care (01) ==
PROVIDERS: PCP Nurse Practitioner Family
DX: M13.841 Other specified arthritis, right hand (principal); M85.88 Other specified disorders of bone density and structure, other site
CPT/HCPCS: 73110; 73130

== ENCOUNTER 2024-12-05 12:06 | Emergency (ER) | payer MEDICARE, MEDICAID, SELFPAY ==
--- NOTE | 2024-12-05 12:12 | EKG_ITS ---
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
[2024-12-05 12:18] VITALS: BP 160/73; PULSE 69; RESP 18; TEMP 36.5; O2SAT 97
--- NOTE | 2024-12-05 12:31 | XR_ITS ---
Examination: PA lateral chest 2 views TECHNIQUE: Upright PA lateral chest 2 views Date and time: December 09, 2024 1253 hours, comparison July 14, 2024 INDICATIONS: Chest pain beginning 2 days ago. FINDINGS: Normal heart size. Left axillary surgical clips. No pneumonia or pulmonary edema Moderate osteopenia IMPRESSION: No active disease
--- NOTE | 2024-12-05 12:31 | PD.EDRME ---
Rapid Medical Screening Exam RME Arrival date/time: 12/05/24 12:06 74-year-old female with a history of type 2 diabetes presents to the emergency room with a chief complaint of 8 out of 10 sternal chest pain that radiates to her upper back and nausea x 2 days I have greeted and performed a focused initial assessment of this patient. A comprehensive ED assessment and evaluation of the patient, analysis of all test results, and completion of the medical decision making process will be conducted by additional ED providers. Chief Complaint: Chest Pain Vital signs: Vital Signs Temperature 97.7 F 12/05/24 12:18 Pulse Rate 69 12/05/24 12:18 Respiratory Rate 18 12/05/24 12:18 Blood Pressure 160/73 H 12/05/24 12:18 Pulse Oximetry (%) 97 12/05/24 12:18 Oxygen Delivery Method Room Air 12/05/24 12:18 Vital signs reviewed by provider: Yes
[2024-12-05 13:05] LABS: Basophils # (Auto) 0.1 Thou/mm3 (0.0-0.2); Basophils % (Auto) 1 % (0-2.5); Eosinophils # (Auto) 0.1 Thou/mm3 (0.0-0.5); Eosinophils % (Auto) 1 % (0-10); Hematocrit 34.2 % (36.0-46.0); Hemoglobin 11.8 g/dL (12.0-16.0); Immature Granulocytes Auto 0.04 Thou/mm3 (0.00-0.00); Lymphocytes # (Auto) 2.0 Thou/mm3 (1.0-4.8); Lymphocytes % (Auto) 29 % (10-50); Mean Corpuscular HGB Conc 34.5 g/dl (31.0-37.0); Mean Corpuscular Hemoglobin 31.8 pg (25.0-35.0); Mean Corpuscular Volume 92 fL (80-100); Monocytes # (Auto) 0.5 Thou/mm3 (0.0-0.8); Monocytes % (Auto) 7 % (0-12); Neutrophils # (Auto) 4.3 Thou/mm3 (1.8-7.7); Neutrophils % (Auto) 62 % (37-80); Nucleated Red Blood Cell # 0.00 Thou/mm3 (0.00-0.00); Nucleated Red Blood Cell % 0 /100 WBC (0); Platelet Count 374 Thou/mm3 (140-440); RDW Standard Deviation 44.5 fL (36.4-46.3); Red Blood Count 3.71 Miln/mm3 (4.00-5.20); White Blood Count 7.0 Thou/mm3 (3.6-11.0)
[2024-12-05 13:21] LABS: B-Type Natriuretic Peptide 38 pg/mL (0-100)
[2024-12-05 13:24] LABS: Alanine Aminotransferase 13 U/L (10-49); Albumin, Serum 4.8 gm/dL (3.4-4.8); Albumin/Globulin Ratio 2.1 (1.2-2.2); Alkaline Phosphatase 74 U/L (46-116); Anion Gap 12 (7-16); Aspartate Amino Transferase 17 U/L (0-34); BUN/Creatinine Ratio 8 Ratio (12-20); Bilirubin,Total 0.4 mg/dL (0.3-1.2); Blood Urea Nitrogen 7 mg/dL (9-23); Calcium 10.2 mg/dL (8.3-10.6); Calcium (Corrected) 10.2 mg/dL (8.5-10.1); Carbon Dioxide 23.4 mMol/L (20.0-31.0); Chloride 103 mMol/L (98-107); Creatinine (Component) 0.9 mg/dL (0.6-1.3); Estimated Creatinine Clearance 51.5 mL/min (>60); Globulin 2.3 gm/dL (2.3-3.5); Glucose 137 mg/dL (74-106); Osmolality,Calculated 275 (275-295); Potassium 4.3 mMol/L (3.4-5.1); Sodium 138 mMol/L (136-145); Total Protein 7.1 gm/dL (5.7-8.2); Troponin I < 0.020 ng/mL (0.0-0.045); eGFR > 60 See Note
[2024-12-05 13:25] LABS: INR 1.0 (0.9-1.3); Partial Thromboplastin Time 25.4 Seconds (22.0-36.0); Prothrombin Time 10.6 Seconds (9.0-12.2)
[2024-12-05 13:31] LABS: Collection Type, Urine Clean Catch
[2024-12-05 13:44] LABS: Bacteria,Urine Rare; Bilirubin,Urine Negative (Negative); Blood,Urine Trace (Negative); Clarity,Urine Clear (Clear/Hazy); Color,Urine Lt-Yellow (Lt Yel-Yel); Glucose, Urine Negative (Negative); Ketones,Urine Negative (Negative); Leukocyte Esterase,Urine Positive (Negative); Nitrite,Urine Negative (Negative); PH,Urine 6.5 (5.0-7.0); Protein,Urine Negative (Neg - Trace); RBC,Urine 1 /hpf (0-3); Renal Epithelial Cells,Urine < 1 /hpf (0-5); Specific Gravity,Urine 1.010 (1.001-1.035); Squamous Epithelial Cell,Urine 1 /hpf (0-5); Urobilinogen,Urine Negative mg/dL (0.0-1.0); WBC,Urine 32 /hpf (0-5)
[2024-12-05 13:47] LABS: Culture Indicated,Urine Yes
[2024-12-05 16:49] LABS: Troponin I < 0.020 ng/mL (0.0-0.045)
--- NOTE | 2024-12-05 16:59 | PD.EDADULT ---
ED General RME/HPI General Chief complaint: Chest Pain Stated complaint: HIGH BP 210/98, CHEST PAIN, DIZZY Time Seen by Provider: 12/05/24 13:01 Arrival date/time: 12/05/24 12:06 Limitations: no limitations RME / HPI RME / HPI narrative: 12/05/24 12:06 74-year-old female with a history of type 2 diabetes presents to the emergency room with a chief complaint of 8 out of 10 sternal chest pain that radiates to her upper back and nausea x 2 days I have greeted and performed a focused initial assessment of this patient. A comprehensive ED assessment and evaluation of the patient, analysis of all test results, and completion of the medical decision making process will be conducted by additional ED providers. DR. CERRATO MAIN ED EVALUATION 74 year old female with history of hypertension, diabetes, and hyperlipidemia presents to the ED for evaluation of sternal chest pain beginning intermittently 1 day ago. Described as aching in sensation, rating as mild. Accompanied by nasal congestion and cough beginning 1 day ago. In the ED, states her symptoms have improved. Does mentioned she has been feeling stressed recently and feels that is attributing to her chest pain. No other associated symptoms reported. Denies fevers, chills, shortness of breath, sweats, abdominal pain, nausea, vomiting, or urinary symptoms. Patient mentioned she was diagnosed with a UTI and colitis 1 week ago in [place] and started on Cephalexin. Reportedly completed the antibiotics yesterday. Related Data Home Medications ?Medication ?Instructions ?Recorded ?Confirmed anastrozole 1 mg tablet 1 mg PO QDAY 10/19/24 10/19/24 bisacodyl 5 mg tablet,delayed 5 mg PO QDAY 10/19/24 10/19/24 release linaclotide 145 mcg capsule 145 mcg PO QDAY 10/19/24 10/19/24 (Linzess) losartan 100 1 tab PO QDAY 10/19/24 10/19/24 mg-hydrochlorothiazide 25 mg tablet Previous Rx's ?Medication ?Instructions ?Recorded ciprofloxacin HCl 500 mg tablet 500 mg PO Q12H #10 tabs 12/05/24 polyethylene glycol 3350 17 gram 17 g PO QDAY #14 ea 12/05/24 oral powder packet (Miralax) Allergies Allergy/AdvReac Type Severity Reaction Status Date / Time No Known Allergies Allergy Verified 12/05/24 12:09 Review of Systems Review of Systems Systems Reviewed: All systems reviewed, normal except as documented Past Medical History Past Medical History NEUROLOGIC: Positive Transient Ischemic Attacks (TIA) CARDIAC: Positive Cardiac Disorders, Angina, Hypercholesterolemia and Hypertension GASTROINTESTINAL: Positive Gastrointestinal Disorders (CONSTIPATION) and Obesity GENITOURINARY: Positive Genitourinary Disorders (URINARY INCONTINENCE) REPRODUCTIVE: Positive Previous Pregnancies MUSCULOSKELETAL: Positive Musculoskeletal Disorders (CARPAL TUNNEL) and Carpal Tunnel Syndrome (LEFT) ENT: Positive Deafness (BILATERAL HEARING AIDS) ENDOCRINE: Positive Endocrine Disorders and Diabetes Mellitus Type 2 PSYCHO/SOCIAL: Positive Depression and Anxiety OTHER HISTORY: Positive Hospitalization Family History FAMILY HISTORY: Positive Family Cardiac Disorders, Family Gastrointestinal Problems, Family Cancer and Family Surgery Surgical History SURGICAL: Positive Ear Surgery, Tympanostomy Tube, Abdominal Surgery (rectal prolapse sx), Nephrectomy and Lumpectomy (LEFT) Social History SMOKING STATUS: Never smoker ED Exam General Limitations: Present no limitations General appearance: Present alert and in no apparent distress Head Head exam: Present atraumatic, normocephalic and normal inspection Eye Eye exam: Present normal appearance, PERRL and EOMI ENT ENT exam: Present normal exam, normal oropharynx and mucous membranes moist Neck Neck exam: Present normal inspection, full ROM and trachea midline Chest Chest inspection: Present normal inspection and symmetric chest wall rise Respiratory Respiratory exam: Present normal lung sounds bilaterally Cardiovascular Cardiovascular exam: Present regular rate, normal rhythm and normal heart sounds Abdominal Exam Abdominal exam: Present soft and normal bowel sounds Extremities Exam Extremities exam: Present normal inspection and full ROM Back Exam Back exam: Present normal inspection and full ROM Neurological Exam Neurological exam: Present alert, oriented X3 and CN II-XII intact Psychiatric Psychiatric exam: Present normal affect and normal mood Skin Skin exam: Present warm, dry, intact and normal color Course Quality Measures none Orders Category Date Time Status EKG (ED ONLY) *Do not use* NOW Care 12/05/24 12:12 Completed EKG (ED Only) Stat Exams 12/05/24 12:12 Draft XR chest 2V Stat Exams 12/05/24 12:31 Completed B-Type Natriuretic Peptide Stat Lab 12/05/24 12:42 Completed CBC Stat Lab 12/05/24 12:42 Completed Comprehensive Metabolic Panel Stat Lab 12/05/24 12:42 Completed Partial Thromboplastin Time Stat Lab 12/05/24 12:42 Completed Prothrombin Time with INR Stat Lab 12/05/24 12:42 Completed Troponin I Stat Lab 12/05/24 12:42 Completed Troponin I Stat Lab 12/05/24 16:10 Completed Urinalysis, C/S if Indicated Stat Lab 12/05/24 13:25 Completed Urine Culture Stat Lab 12/05/24 13:25 Completed Ciprofloxacin HCl [Ciprofloxacin] Med 12/05/24 17:04 Discontinued 500 mg PO X1 ONE Ketorolac Inj [Toradol Inj] Med 12/05/24 17:03 Discontinued 15 mg IM X1 ONE Vital Signs Vital signs: Vital Signs Temperature 97.7 F 12/05/24 12:18 Pulse Rate 69 12/05/24 12:18 Respiratory Rate 18 12/05/24 12:18 Blood Pressure 160/73 H 12/05/24 12:18 Pulse Oximetry (%) 97 12/05/24 12:18 Oxygen Delivery Method Room Air 12/05/24 12:18 Pulse ox is 97% on room air which is adequate. Discharge Plan Plan Patient Disposition: HOME (Self Care) Prescriptions/Referrals Prescriptions/Med Rec: New ciprofloxacin HCl 500 mg tablet 500 mg PO Q12H Qty: 10 0RF polyethylene glycol 3350 [Miralax] 17 gram powder in packet 17 g PO QDAY Qty: 14 0RF No Action anastrozole 1 mg tablet 1 mg PO QDAY Patient Comments: TAKE 1 TABLET BY MOUTH DAILY losartan-hydrochlorothiazide 100-25 mg tablet 1 tab PO QDAY Patient Comments: TAKE 1 TABLET BY MOUTH EVERY MORNING FOR HIGH BLOOD PRESSURE bisacodyl 5 mg tablet,delayed release (DR/EC) 5 mg PO QDAY Patient Comments: TAKE 1 TABLET BY MOUTH DIRECTED Linzess 145 mcg capsule 145 mcg PO QDAY Patient Comments: TAKE 1 CAPSULE BY MOUTH EVERY DAY NEEDED FOR CONSTIPATION Referrals: Litzy Silver NP [Primary Care Provider] - In 1 week Problem List Clinical Impression: Urinary tract infection Patient/Caregiver Discharge Instructions Education Materials: ED Constipation (Adult), ED CYSTITIS Female Adult Print Language: Setswana Stand Alone Forms: [employer] Award Info., Patient Portal Info Letter MDM Narrative MDM hospital course (for use when minimal MDM required): Patient presents feeling weak, CP and light headed. Patient hypertensive on arrival, no FND. Ordered labs, EKG, CXR offered meds for symptom relief. Labs w/o acute hematologic, or metabolic abnl. EKG w/o evidence of ischemia, troponin not elevated. CXR unremarkeable. UA with infection. Provided abx. On re-eval patient HD stable NAD. Chest pain resolved. Will dc to home with close return precautions adn follow up with pcp. Clinical Information Provided by: patient Medical Records reviewed [facility] Meds/Rx considered, not ordered None Labs/Rad/Tests considered, not ordered None Chronic Illness/Social Conditions which may negatively complicate care or outcome(s)-explain: None or not applicable Labs Labs: see narrative above Imaging Imaging interpretation: see narrative above Medication Administration(s) Medication Administration History Discontinued Medications Ciprofloxacin (Ciprofloxacin Hcl 250 Mg Tablet) 500 mg PO X1 ONE Stop: 12/05/24 17:05 Last Admin: 12/05/24 17:40 Dose: 500 mg Documented By: LP Ketorolac Tromethamine (Ketorolac Inj 60 Mg/2 Ml Vial) 15 mg IM X1 ONE Stop: 12/05/24 17:04 Last Admin: 12/05/24 17:40 Dose: 15 mg Documented By: LP See above Diagnosis Diagnoses ruled out and/or further discussions: UTI
[2024-12-05] MEDS: CIPROFLOXACIN HCL 250 MG TABLET 500 MG PO (17:40)
[2024-12-05] MEDS: KETOROLAC INJ 60 MG/2 ML VIAL 15 MG IM (17:40)
== END 2024-12-05 18:00 | disposition home or self-care (01) ==
PROVIDERS: Nurse Practitioner Family; Emergency Provider Emergency Medicine; PCP Nurse Practitioner Family
DX: N39.0 Urinary tract infection, site not specified (principal); R07.2 Precordial pain; E11.9 Type 2 diabetes mellitus without complications; E78.5 Hyperlipidemia, unspecified; I10 Essential (primary) hypertension
CPT/HCPCS: 36415; 71046; 80053; 81001; 83880; 84484; 85025; 85610; 85730; 87086; 93005; 96372; 99284; J1885; A9270

== ENCOUNTER → 2024-12-05 | Outpatient (CLI) | payer MEDICARE, MEDICAID, SELFPAY ==
--- NOTE | 2024-12-05 09:15 | XR_ITS ---
Examination: Diagnostic digital mammography, bilateral Computer aided detection 3-D breast Tomosynthesis, bilateral Date and time of exam: December 05, 2024, 0900 hours Compared to mammograms dating to July 03, 2022 INDICATIONS: Personal history left breast cancer, lumpectomy June 2024 Technique: Nonmagnified MLO, CC views of the breasts to been obtained, reconstructed from 3-D Tomosynthesis images. R2 computer aided detection program utilized for evaluation of suspicious masses and/or abnormal calcifications. 3-D Tomosynthesis images obtained. Findings: The breast is heterogeneously dense, which may obscure small masses Benign calcifications. No suspicious masses Impression: BI-RADS Category 0: Incomplete: Need additional imaging evaluation No left mammogram Recommend bilateral breast sonography follow-up if the patient cannot tolerate left mammogram.
== END | disposition home or self-care (01) ==
PROVIDERS: Referring Provider Surgery; Visit Provider Surgery
DX: R92.8 Other abnormal and inconclusive findings on diagnostic imaging of breast (principal)
CPT/HCPCS: 77062; 77066; G0279

== ENCOUNTER → 2024-12-15 | Outpatient (CLI) | payer MEDICARE, MEDICAID, SELFPAY ==
--- NOTE | 2024-12-15 12:29 | XR_ITS ---
Examination: Breast ultrasound complete, bilateral Date and time of exam: December 15, 2024, 1314 hours INDICATIONS: Personal history left breast lumpectomy for breast cancer May 2024, unable to tolerate left mammogram on mammography December 05, 2024 Technique: Real-time grayscale ultrasonographic imaging bilateral breasts, including all 4 quadrants as well as nipple retroareolar and axillary regions. Findings: Sonographic images right breast 4:00 cyst 9 x 8 mm No solid nodules Sonographic images left breast Scarring in the 2:00 region, lumpectomy May 2024 No solid nodules IMPRESSION: BI-RADS Category 3: Probably benign findings Recommend 1 additional 6 month left breast sonogram follow-up to document stability of scar formation in the 2:00 position left breast
--- NOTE | 2024-12-15 13:40 | XR_ITS ---
Examination: Bone densitometry Date and time of exam:December 15, 2024, 12:50 PM INDICATIONS: Menopause age 52, diabetic, personal history left breast cancer with surgery May 2024 Technique: Lumbar spine and hip total bone mineralization values of an calculated. Peak reference and age match control results have been displayed. Findings: Lumbar spine total bone mineralization is1.000 gm/cm2. This is 0.4 standard deviations below peak reference. This is 1.8 standard deviations above age-matched controls. Hip total bone mineralization is 0.958 gm/cm2 This is 0.0 standard deviations at peak reference. This is 1.6 standard deviations above age-matched controls Impression: There is normal mineralization based on lumbar spine measurements. There is osteopenia based on hip measurements Lumbar mineralization is decreased 3.9% compared with March 29, 2018 Hip mineralization is decreased 3.7% compared with March 29, 2018
== END | disposition home or self-care (01) ==
LOC: CDIM 12:21
PROVIDERS: PCP Nurse Practitioner Family; Referring Provider Nurse Practitioner Family; Visit Provider Internal Medicine Hematology & Oncology
DX: M85.89 Other specified disorders of bone density and structure, multiple sites (principal); N64.89 Other specified disorders of breast; C50.412 Malignant neoplasm of upper-outer quadrant of left female breast
CPT/HCPCS: 76641; 77080

== ENCOUNTER → 2025-01-25 | Outpatient (CLI) | payer MEDICARE, MEDICAID, SELFPAY ==
[2025-01-25 10:14] LABS: Misc Send Out* See Sep Rpt
[2025-01-25 10:40] LABS: Basophils # (Auto) 0.1 Thou/mm3 (0.0-0.2); Basophils % (Auto) 1 % (0-2.5); Eosinophils # (Auto) 0.1 Thou/mm3 (0.0-0.5); Eosinophils % (Auto) 3 % (0-10); Hematocrit 34.9 % (36.0-46.0); Hemoglobin 12.0 g/dL (12.0-16.0); Immature Granulocytes Auto 0.07 Thou/mm3 (0.00-0.00); Lymphocytes # (Auto) 1.8 Thou/mm3 (1.0-4.8); Lymphocytes % (Auto) 33 % (10-50); Mean Corpuscular HGB Conc 34.4 g/dl (31.0-37.0); Mean Corpuscular Hemoglobin 31.3 pg (25.0-35.0); Mean Corpuscular Volume 91 fL (80-100); Monocytes # (Auto) 0.5 Thou/mm3 (0.0-0.8); Monocytes % (Auto) 9 % (0-12); Neutrophils # (Auto) 3.0 Thou/mm3 (1.8-7.7); Neutrophils % (Auto) 53 % (37-80); Nucleated Red Blood Cell # 0.00 Thou/mm3 (0.00-0.00); Nucleated Red Blood Cell % 0 /100 WBC (0); Platelet Count 368 Thou/mm3 (140-440); RDW Standard Deviation 42.7 fL (36.4-46.3); Red Blood Count 3.84 Miln/mm3 (4.00-5.20); White Blood Count 5.6 Thou/mm3 (3.6-11.0)
[2025-01-25 11:08] LABS: Alanine Aminotransferase 10 U/L (10-49); Albumin, Serum 5.0 gm/dL (3.4-4.8); Albumin/Globulin Ratio 2.2 (1.2-2.2); Alkaline Phosphatase 78 U/L (46-116); Anion Gap 11 (7-16); Aspartate Amino Transferase < 8 U/L (0-34); BUN/Creatinine Ratio 14 Ratio (12-20); Bilirubin,Total 0.4 mg/dL (0.3-1.2); Blood Urea Nitrogen 11 mg/dL (9-23); Calcium 10.5 mg/dL (8.3-10.6); Calcium (Corrected) 10.5 mg/dL (8.5-10.1); Carbon Dioxide 26.7 mMol/L (20.0-31.0); Chloride 103 mMol/L (98-107); Creatinine (Component) 0.8 mg/dL (0.6-1.3); Globulin 2.3 gm/dL (2.3-3.5); Glucose 128 mg/dL (74-106); Osmolality,Calculated 282 (275-295); Potassium 4.0 mMol/L (3.4-5.1); Sodium 141 mMol/L (136-145); Total Protein 7.3 gm/dL (5.7-8.2); eGFR > 60 See Note
== END | disposition home or self-care (01) ==
PROVIDERS: PCP Nurse Practitioner Family; Referring Provider Internal Medicine Hematology & Oncology; Visit Provider Internal Medicine Hematology & Oncology
DX: C50.412 Malignant neoplasm of upper-outer quadrant of left female breast (principal)
CPT/HCPCS: 36415; 80053; 85025

== ENCOUNTER → 2025-02-06 | Outpatient (BNVA) | payer MEDICARE, MEDICAID, SELFPAY | END | disposition home or self-care (01) | PROVIDERS: PCP Nurse Practitioner Family; Referring Provider Nurse Practitioner Family; Visit Provider Urology | DX: N32.81 Overactive bladder (principal); E11.9 Type 2 diabetes mellitus without complications; I10 Essential (primary) hypertension; K57.90 Diverticulosis of intestine, part unspecified, without perforation or abscess without bleeding; E66.9 Obesity, unspecified; Z71.3 Dietary counseling and surveillance; Z68.27 Body mass index [BMI] 27.0-27.9, adult | CPT/HCPCS: 81003; 99212; 99213; G0463 ==